=== PATIENT | male | born 1945 | race Caucasian/White ===

== ENCOUNTER 2017-07-08 14:52 | Emergency (ER) | payer MEDICARE, MEDICAID ==
[2017-07-08 14:52] VITALS: BMI 29.7
--- NOTE | 2017-07-08 15:20 | C.PDOC ---
History Of Present Illness 71M c/o pain in his left hip rad down to his lower leg since he tripped and fell outside his home yesterday around 430pm. his daughter says he initially didn't tell anyone but last night he developed worsening pain and so he told her what had happened. denies any head injury. he took ibuprofen with some relief. he has been able to ambulate. Time Seen by Provider: 07/08/17 15:19 Chief Complaint (Nursing): Hip Pain Past Medical History Vital Signs: Last Vital Signs Temp 99.1 F 07/08/17 15:00 Pulse 84 07/08/17 15:00 Resp 20 07/08/17 15:00 BP 109/64 07/08/17 15:00 Pulse Ox 95 07/08/17 17:40 - Medical History PMH: Arthritis, Diabetes, HTN Family History: States: Other Other Family History: nc - Social History Hx Tobacco Use: No Hx Alcohol Use: No Hx Substance Use: No - Immunization History Hx Tetanus Toxoid Vaccination: No Hx Influenza Vaccination: No Hx Pneumococcal Vaccination: No Review Of Systems Constitutional: Negative for: Fever Cardiovascular: Negative for: Chest Pain Respiratory: Negative for: Shortness of Breath Gastrointestinal: Negative for: Vomiting, Abdominal Pain Musculoskeletal: Negative for: Neck Pain, Back Pain Neurological: Negative for: Headache Physical Exam - Physical Exam Appears: Well, Non-toxic Skin: Warm, Dry Head: Atraumatic Eye(s): bilateral: PERRL Nose: No Epistaxis Neck: Normal ROM Chest: No Tenderness Cardiovascular: Rhythm Regular Respiratory: No Decreased Breath Sounds, No Accessory Muscle Use Gastrointestinal/Abdominal: Soft, No Tenderness Extremity: Normal ROM, Tenderness (lateral left hip and femur and also mid tib/ fib. rom hip/knee/ankle wnl.), No Deformity Pulses: Left Dorsalis Pedis: Normal Neurological/Psych: Oriented x3, Normal Motor, Normal Sensation, Other (no focal deficits) ED Course And Treatment O2 Sat by Pulse Oximetry: 95 Medical Decision Making Medical Decision Makin disc results w pt and daughter. I had the pt get up and ambulate and he was able to ambulate without difficulty. Disc plan for rx, f/u, and rtr. PROCEDURE: Radiographs of the left tibia and fibula. HISTORY: fall pain COMPARISON: None available. TECHNIQUE: Frontal and lateral views obtained. FINDINGS: BONES: No fracture or destructive lesion. JOINT SPACES: Moderate degenerative changes. OTHER FINDINGS: None. IMPRESSION: No evidence of acute fracture or dislocation. PROCEDURE: Left Femur Radiographs. HISTORY: fall pain COMPARISON: None. TECHNIQUE: AP and Lateral Radiographs of the left femur. FINDINGS: FEMUR: Normal. No fracture. SOFT TISSUES: Normal. OTHER FINDINGS: Degenerative changes seen at the left hip and left knee. IMPRESSION: No evidence of acute fracture or dislocation PROCEDURE: Left Hip with pelvis X-ray Radiographs. HISTORY: fall pain COMPARISON: None. FINDINGS: BONES: No acute fracture or destructive bony lesion identified. JOINTS: Degenerative changes are symmetric in the bilateral sacroiliac and hip joints. No subluxation or dislocation left hip joint. Symphysis pubis is intact. SOFT TISSUES: Normal. OTHER FINDINGS: None. IMPRESSION: Degenerative changes are symmetric at the bilateral sacroiliac and hip joints. No fracture dislocation left hip joint. Pelvic ring appears intact. Disposition - Disposition Disposition: HOME/ ROUTINE Disposition Time: 17:40 Condition: STABLE Forms: [facility] (Italian) - Clinical Impression Clinical Impression: Contusion of hip, Contusion of leg
--- NOTE | 2017-07-08 17:25 | RAD ---
PROCEDURE: Left Hip with pelvis X-ray Radiographs. HISTORY: fall pain COMPARISON: None. FINDINGS: BONES: No acute fracture or destructive bony lesion identified. JOINTS: Degenerative changes are symmetric in the bilateral sacroiliac and hip joints. No subluxation or dislocation left hip joint. Symphysis pubis is intact. SOFT TISSUES: Normal. OTHER FINDINGS: None. IMPRESSION: Degenerative changes are symmetric at the bilateral sacroiliac and hip joints. No fracture dislocation left hip joint. Pelvic ring appears intact.
--- NOTE | 2017-07-08 17:26 | RAD ---
PROCEDURE: Left Femur Radiographs. HISTORY: fall pain COMPARISON: None. TECHNIQUE: AP and Lateral Radiographs of the left femur. FINDINGS: FEMUR: Normal. No fracture. SOFT TISSUES: Normal. OTHER FINDINGS: Degenerative changes seen at the left hip and left knee. IMPRESSION: No evidence of acute fracture or dislocation.
--- NOTE | 2017-07-08 17:37 | RAD ---
PROCEDURE: Radiographs of the left tibia and fibula. HISTORY: fall pain COMPARISON: None available. TECHNIQUE: Frontal and lateral views obtained. FINDINGS: BONES: No fracture or destructive lesion. JOINT SPACES: Moderate degenerative changes. OTHER FINDINGS: None. IMPRESSION: No evidence of acute fracture or dislocation.
[2017-07-08 18:04] VITALS: BP 112/62; PULSE 78; RESP 18; TEMP 99; O2SAT 98
== END 2017-07-08 18:05 | disposition home or self-care (01) ==
LOC: C.ER 14:52
DX: S70.02XA Contusion of left hip, initial encounter (principal); S80.12XA Contusion of left lower leg, initial encounter; W01.0XXA Fall on same level from slipping, tripping and stumbling without subsequent striking against object, initial encounter

== ENCOUNTER 2018-09-11 15:58 | Inpatient (IN) | payer MEDICARE, MEDICAID ==
[2018-09-11 16:20] VITALS: BMI 28.4
[2018-09-11 17:03] LABS: EOS # 0.1 K/uL (0.0-0.7); HEMOGLOBIN 14.7 g/dL (12.0-18.0); MEAN CORPUSCULAR HEMOGLOBIN 31.4 pg (27.0-31.0)
--- NOTE | 2018-09-11 17:08 | RAD ---
Date of service: 09/11/2018 PROCEDURE: CHEST RADIOGRAPH, 1 VIEW HISTORY: SOB COMPARISON: Chest radiograph dated 08/27/2014. FINDINGS: LUNGS: Stable chronic prominence of the bilateral interstitial markings with superimposed pulmonary vascular congestion not excluded. Peripheral fibrotic changes. PLEURA: Questionable small left effusion. No pneumothorax. CARDIOVASCULAR: Aortic atherosclerotic calcifications. Cardiomediastinal silhouette stably enlarged. OSSEOUS STRUCTURES: Changed. VISUALIZED UPPER ABDOMEN: Normal. OTHER FINDINGS: None. IMPRESSION: Stable chronic prominence of the bilateral interstitial markings with superimposed pulmonary vascular congestion not excluded. Questionable small left effusion.
--- NOTE | 2018-09-11 17:09 | C.PDOC ---
History Of Present Illness 73 y/o male presents to the ER complaining of cough and shortness of breath which has been present for the past 1 month. Patient states that he returned from [place] in July 2018. Patient reports that he was evaluated by his PMD Dr Gallegos and he was given prescriptions for abx and cough suppressants. He took the medications without significant relief. He went to who referred him to the ER for cardiac work up and admission. Denies having fever, chills, headache, CP, nausea, and vomiting. Time Seen by Provider: 09/11/18 16:16 Chief Complaint (Nursing): Cough, Cold, Congestion History Per: Patient History/Exam Limitations: no limitations Onset/Duration Of Symptoms: Days Current Symptoms Are (Timing): Still Present Severity: Moderate Past Medical History Reviewed: Historical Data, Nursing Documentation, Vital Signs Vital Signs: Last Vital Signs Temp 98.2 F 09/11/18 16:06 Pulse 100 H 09/11/18 16:06 Resp 24 09/11/18 16:06 BP 111/70 09/11/18 16:06 Pulse Ox 94 L 09/11/18 16:06 - Medical History PMH: Arthritis, Diabetes Denies: HTN (family denies) Surgical History: No Surg Hx Family History: States: No Known Family Hx - Social History Hx Tobacco Use: No Hx Alcohol Use: No Hx Substance Use: No - Immunization History Hx Tetanus Toxoid Vaccination: No Hx Influenza Vaccination: No Hx Pneumococcal Vaccination: No Review Of Systems Except As Marked, All Systems Reviewed And Found Negative. Constitutional: Negative for: Fever, Chills Cardiovascular: Negative for: Chest Pain Respiratory: Positive for: Cough, Shortness of Breath Gastrointestinal: Negative for: Nausea, Vomiting Neurological: Negative for: Headache Physical Exam - Physical Exam Appears: Other (ruckus coughing) Skin: Normal Color, Warm, Dry Head: Atraumatic, Normacephalic Eye(s): bilateral: Normal Inspection Nose: Normal Oral Mucosa: Moist Throat: Normal, No Erythema, No Exudate Neck: Supple Chest: Symmetrical Cardiovascular: Rhythm Regular Respiratory: No Rales, Rhonchi (scattered rhonchi), Wheezing (scattered wh eezing) Gastrointestinal/Abdominal: Soft, No Tenderness, No Guarding, No Rebound Extremity: Normal ROM, Other (mild non pitting edema to bilateral lower extremities) Neurological/Psych: Oriented x3, Normal Speech ED Course And Treatment - Laboratory Results Result Diagrams: 09/11/18 16:58 09/11/18 16:58 ECG: Interpreted By Me, Viewed By Me ECG Rhythm: Sinus Rhythm Interpretation Of ECG: NSR with no ST elevations or depressions Rate From EC O2 Sat by Pulse Oximetry: 94 (RA) Pulse Ox Interpretation: Abnormal Medical Decision Making Medical Decision Making: Plan: --Labs --CXR --UA --CT- Chest Updates: Case discussed with . Patient will be admitted for further evaluation. Disposition - Disposition Disposition: HOSPITALIZED Disposition Time: 17:37 Condition: GUARDED - Clinical Impression Clinical Impression: SOB (shortness of breath), Hypoxia - Scribe Statement The provider has reviewed the documentation as recorded by the Scribe Magda Garcia Provider Attestation: All medical record entries made by the Scribe were at my direction and personally dictated by me. I have reviewed the chart and agree that the record accurately reflects my personal performance of the history, physical exam, me dical decision making, and the department course for this patient. I have also personally directed, reviewed, and agree with the discharge instructions and disposition. Decision To Admit - Pt Status Changed To: Hospital Disposition Of: Inpatient - Admit Certification Admit to Inpatient:: After my assessment, the patient will require hospitalization for at least two midnights. This is because of the severity of symptoms shown, intensity of services needed, and/or the medical risk in this patient being treated as an outpatient. - InPatient: Physician Admission Certification: I certify that this patient requires 2 or more midnights of care for the following reason:: sob, hypoxia - . Bed Request Type: Telemetry Patient Diagnosis: SOB (shortness of breath), Hypoxia
[2018-09-11 17:10] LABS: BASO % 0.4 % (0.0-2.0); EOS % 3.3 % (0.0-4.0); LYMPH # 1.3 K/uL (1.0-4.3); LYMPH % 36.7 % (20.0-40.0); MEAN CORPUSCULAR HGB CONC 32.9 g/dL (33.0-37.0); MEAN PLATELET VOLUME 8.7 fL (7.2-11.7); MONO # 0.3 K/uL (0.0-0.8); MONO % 9.9 % (0.0-10.0); NEUT # 1.7 K/uL (1.8-7.0); NEUT % 49.7 % (50.0-75.0); NRBC % 0.3 % (0.0-2.0); RBC 4.67 Mil/uL (4.40-5.90); RED CELL DISTRIBUTION WIDTH 14.6 % (11.5-14.5); WHITE BLOOD COUNT 3.5 K/uL (4.8-10.8)
[2018-09-11 17:12] LABS: MEAN CELL VOLUME 95.4 fL (80.0-94.0)
[2018-09-11 17:14] LABS: ALB/GLOB RATIO 0.7 (1.0-2.1); ALBUMIN 3.2 g/dL (3.5-5.0); ALT/SGPT 29 U/L (21-72); AST/SGOT 66 U/L (17-59); BLOOD UREA NITROGEN 14 mg/dL (9-20); GFR NON-AFRICAN AMERICAN > 60
[2018-09-11 17:25] LABS: B-TYPE NATRIURETIC PEPTIDE 407 pg/mL (0-900)
[2018-09-11] MEDS ORDERED: Ipratropium 0.02% Inhal Soln (0.5 mg/2.5 ml) UD IH STA (17:35)
[2018-09-11] MEDS ORDERED: Ipratropium 0.02% Inhal Soln (0.5 mg/2.5 ml) UD IH ONE (17:44)
--- NOTE | 2018-09-11 18:32 | CT ---
Date of service: 09/11/2018 PROCEDURE: CT Chest without contrast HISTORY: lung desease, SOB COMPARISON: Comparison is made with the previous study dated 08/27/2014 TECHNIQUE: Contiguous axial images were obtained through the chest without intravenous contrast enhancement. Sagittal and coronal reconstructions were performed. Radiation dose: Total exam DLP = 453.35 mGy-cm. This CT exam was performed using one or more of the following dose reduction techniques: Automated exposure control, adjustment of the mA and/or kV according to patient size, and/or use of iterative reconstruction technique. FINDINGS: LUNGS: Interval worsening of reticular opacities at peripheral portion of the upper lobes since the previous exam. Significant interval worsening of reticular opacities at the lung bases left more than right with interval appearance of honeycomb changes. MEDIASTINUM: The thoracic aorta is ectatic and tortuous. The heart is mildly to moderately enlarged. The main pulmonary artery is slightly enlarged. There are [id number] lymphadenopathy in the mediastinum. Small foci of atherosclerotic calcification noted at the aortic arch. PLEURA: There is a trace left pleural effusion. BONES: No fracture. No destructive lesion. UPPER ABDOMEN: Cirrhotic manifestation of the liver are noted. There are multiple varices in the upper abdomen and around the distal esophagus. The spleen is enlarged. OTHER FINDINGS: None. IMPRESSION: Interval worsening of reticular opacities since the prior exam with interval appearance of honeycomb changes at the lung bases. 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 Trace left pleural effusion noted. Cardiomegaly. Mild mediastinal lymphadenopathy. Cirrhosis with findings suggestive of portal hypertension.
[2018-09-11 20:29] VITALS: RESP 20
[2018-09-11 20:58] LABS: ABG ALLEN TEST YES; ARTERIAL BLOOD GAS HEMOGLOBIN 13.2 g/dL (11.7-17.4); ARTERIAL BLOOD GAS O2 SAT 97.5 % (95-98); ARTERIAL BLOOD GAS PCO2 33 mm/Hg (35-45); ARTERIAL BLOOD GAS PH 7.44 (7.35-7.45); ARTERIAL BLOOD GAS PO2 71 mm/Hg (80-100); ARTERIAL BLOOD GAS TCO2 23.4 mmol/L (22-28)
[2018-09-11] MEDS: Latanoprost 2.5 ml Opht Soln OU SCH (22:04)
[2018-09-12] MEDS: Albuterol-Ipratrop 3 mg / 0.5 (3 ml) UD INH SCH ×6 (00:22→20:52)
[2018-09-12 08:22] LABS: HEPATITIS B SURFACE AG Negative (NEGATIVE)
[2018-09-12 08:28] LABS: HEPATITIS A IGM NEGATIVE (NEGATIVE); HEPATITIS B CORE AB NEGATIVE (NEGATIVE)
[2018-09-12 08:39] LABS: HEPATITIS C ANTIBODY NEGATIVE (NEGATIVE)
[2018-09-12] MEDS: Promethazine/Cod 6.25mg-10mg/5ml Syr UD PO PRN (08:56)
[2018-09-12] MEDS: MethylPREDNISolone 40 mg Vial IV SCH ×4 (09:26→23:11)
[2018-09-12] MEDS: Enoxaparin 40 mg Syringe SC SCH (09:26)
[2018-09-12] MEDS ORDERED: guaiFENesin 600 mg ER Tab PO SCH (10:00)
--- NOTE | 2018-09-12 10:07 | US ---
Date of service: 09/12/2018 HISTORY: cirrhosis COMPARISON: 12/06/2015 abdominal ultrasound TECHNIQUE: Sonographic evaluation of the abdomen. FINDINGS: LIVER: Measures 9.8 cm. Heterogeneous echogenicity of the liver parenchyma. No focal mass appreciate. No intrahepatic bile duct dilatation. Known history of cirrhosis. GALLBLADDER: Unremarkable. No gallstones. COMMON BILE DUCT: Measures 3.1 mm. No stones. No dilatation. PANCREAS: Limited by overlying bowel gas RIGHT KIDNEY: Measures 10.1 x 4.8 x 5.2cm. Normal echogenicity. No calculus, mass, or hydronephrosis. Overall right renal visualization per images is somewhat limited. LEFT KIDNEY: Measures measures 11.5 x 5.2 x 5.2cm. Normal echogenicity. No calculus, mass, or hydronephrosis. Left renal ultrasound depiction better than the right SPLEEN: 13.6 x 6.4 cm. No splenic masses or calcifications noted. The spleen certainly appears disproportionately larger compared to the liver its size is nearing splenomegaly a status AORTA: No aneurysmal dilatation. IVC: Unremarkable. OTHER FINDINGS: Patent portal vein. Portal venous flow: Hepatopetal. IMPRESSION: Somewhat limited exam due to patient's inability to optimally breath hold. Nevertheless findings compatible with a small heterogeneous liver compatible with cirrhosis. No focal masses are noted. Patent portal vein. Portal venous flow: Hepatopetal. Relative to the liver mild splenomegaly inferred
[2018-09-12] MEDS: Azithromycin 500 MG in Sodium Chloride 0.9% 250 ML IVPB SCH (10:30)
--- NOTE | 2018-09-12 11:41 | CARD ---
APPROVED REPORT Date of service: 09/11/2018 EKG Measurement Heart [id number] <Conclusion> Normal sinus rhythm Low voltage QRS Borderline ECG
--- NOTE | 2018-09-12 13:14 | CP.PCM.CON ---
<Peter Jackson - Last Filed: 09/12/18 18:40> History of Present Illness - History of Present Illness History of Present Illness: 73 year old man with a past medical history of insomnia, arthritis, and diabetes presents to the hospital fora cough and chest pain he reports for the past on e month. Patient states the pain starts mid-sternally with radiation to the left side of his chest. Patient reports it occurring while at rest and during activity. In conjunction, patient also reports dyspnea or exertion for the past month also. Patient denies any dizziness, syncopal episodes, changes in vision, headaches, abdominal pain, or any other complaints PMD: Dr. Bateman Medical History: Insomnia, diabetes, arthritis, hepatic cirrhosis Allergies: Denies Surgical history:Denies Family history: Denies Social history:Denies tobacco or smoking history. Denies illicit drug use. Review of Systems - Constitutional Constitutional: absent: Chills, Daytime Sleepiness, Frequent Falls, Headache, Night Sweats, Snoring, Weakness - EENT Eyes: absent: Blurred Vision, Discharge, Loss of Peripheral Vision, Requires Corrective Lenses, Other Visual Disturbances Ears: absent: Disequilibrium, Dizziness Nose/Mouth/Throat: absent: Nasal Congestion, Nasal Trauma, Nose Pain, Bleeding Gums, Dysphagia, Mouth Pain, Facial Pain - Cardiovascular Cardiovascular: Chest Pain, Dyspnea, Dyspnea on Exertion. absent: Claudication, Edema, Irregular Heart Rhythm, Leg Edema, Orthopnea, Palpitations, Pedal Edema, Syncope - Respiratory Respiratory: Cough. absent: Dyspnea, Hemoptysis, Stridor, Pain on Inspiration, Change in Mucous Color - Gastrointestinal Gastrointestinal: absent: Abdominal Pain, Change in Stool Character, Diarrhea, Fecal Incontinence, Loose Stools, Melena, Nausea, Vomiting - Musculoskeletal Musculoskeletal: absent: Arthralgias, Muscle Weakness, Myalgias, Stiffness, Tingling - Integumentary Integumentary: absent: Bleeding Lesions, Change in Pigmentation, Lesions, Sores, Striae, Swelling - Neurological Neurological: absent: Abnormal Hearing, Dizziness, Numbness, Focal Weakness, Restless Legs, Vertigo, Weakness - Psychiatric Psychiatric: absent: Anhedonia, Anxiety, Depression, Hopelessness, Panic Attacks - Endocrine Endocrine: absent: Polydipsia, Polyphagia, Polyuria - Hematologic/Lymphatic Hematologic: absent: Easy Bleeding, Easy Bruising Past Patient History - Past Medical History & Family History Past Medical History?: No - Past Social History Smoking Status: Never Smoked - CARDIAC Hx Cardiac Disorders: No Hx Angina: No Hx Atrial Fibrillation: No Hx Cardia Arrhythmia: No Hx Circulatory Problems: No Hx Congestive Heart Failure: No Hx Heart Attack: No Hx Heart Murmur: No Hx Heart Transplant: No Hx Hypercholesterolemia: No Hx Hypertension: No (family denies) Hx Hypotension: No Hx Internal Defibrillator: No Hx Mitral Valve Prolapse: No Hx Pacemaker: No Hx Peripheral Edema: No Hx Peripheral Vascular Disease: No - PULMONARY Hx Respiratory Disorders: No Hx Asthma: No Hx Bronchitis: No Hx Chronic Obstructive Pulmonary Disease (COPD): No Hx Emphysema: No Hx Lung Cancer: No Hx Pneumonia: No Hx Pulmonary Edema: No Hx Pulmonary Embolism: No Hx Respiratory Aspiration: No Hx Respiratory Tract Infection: No Hx Sleep Apnea: No Hx Tuberculosis: No - NEUROLOGICAL Hx Neurological Disorder: No Hx Alzheimer's Disease: No HX Cerebrovascular Accident: No Hx Dementia: No Hx Dizziness: No Hx Meningitis: No Hx Migraine: No Hx Multiple Sclerosis: No Hx Paralysis: No Hx Parkinson's Disease: No Hx Seizures: No Hx Syncope: No Hx Transient Ischemic Attacks (TIA): No Hx Vertigo: No - HEENT Hx HEENT Problems: No Hx Blind: No Hx Cataracts: No Hx Deafness: No Hx Difficulty Chewing: No Hx Epistaxis: No Hx Glaucoma: No Hx Macular Degeneration: No Hx Sinusitis: No - RENAL Hx Chronic Kidney Disease: No Hx Dialysis: No Hx Kidney Stones: No Hx Neurogenic Bladder: No Hx Pyelonephritis: No Hx Renal (Kidney) Cancer: No Hx Renal Failure: No - ENDOCRINE/METABOLIC Hx Endocrine Disorders: No Hx Adrenal Cancer: No Hx Diabetes Insipidus: No Hx Diabetes Mellitus Type 1: No Hx Diabetes Mellitus Type 2: No Hx Hyperthyroidism: No Hx Hypothyroidism: No Hx Systemic Lupus Erythematosus: No Other/Comment: DM. DOES NOT KNOW WHICH TYPE OR ORAL MEDICATIONS - HEMATOLOGICAL/ONCOLOGICAL Hx Blood Disorders: No Hx AIDS: No Hx Anemia: No Hx Blood Transfusions: No Hx Blood Transfusion Reaction: No Hx Bruising: No Hx Cancer: No Hx Chemotherapy: No Hx Cirrhosis: No Hx Gum Bleeding: No Hx Hemophilia: No Hx Hepatitis A: No Hx Hepatitis B: No Hx Hepatitis C: No Hx Human Immunodeficiency Virus (HIV): No Hx Leukemia: No Hx Metastesis: No Hx Shingles: No Hx Sickle Cell Disease: No Hx Unexplained Bleeding: No Hx von Willebrand's Disease: No - INTEGUMENTARY Hx Dermatological Problems: No Hx Basil Cell: No Hx Payne: No Hx Cellulitis: No Hx Eczema: No Hx Melanoma: No Hx Psoriasis: No Hx Squamous Cell: No - MUSCULOSKELETAL/RHEUMATOLOGICAL Hx Musculoskeletal Disorders: No Hx Arthritis: Yes Hx Back Pain: No Hx Degenerative Joint Disease: No Hx Falls: No Hx Fractures: No Hx Gout: No Hx Herniated Disk: No Hx Myasthenia Gravis: No Hx Osteoarthritis: No Hx Osteomyelitis: No Hx Osteoporosis: No Hx Rhabdomyolysis: No Hx Rheumatoid Arthritis: No Hx Spinal Stenosis: No Hx Unsteady Gait: No - GASTROINTESTINAL Hx Gastrointestinal Disorders: No Hx Bowel Surgery: No Hx Clostridium Difficile: No Hx Colitis: No Hx Colostomy: No Hx Constipation: No Hx Crohn's Disease: No Hx Diarrhea: No Hx Diverticulitis: No Hx Esophageal Varices: No Hx Fatty Liver Disease: No Hx Gall Bladder Disease: No Hx Gastritis: No Hx Gastroesophageal Reflux: No Hx Hemorrhoids: No Hx Ileostomy: No Hx Irritable Bowel: No Hx Liver Failure: No Hx Nausea: No Hx Pancreatitis: No HX Swallowing Problems: No Hx Ulcer: No Hx Vomiting: No - GENITOURINARY/GYNECOLOGICAL Hx Genitourinary Disorders: No Hx Bladder Cancer: No Hx Bladder Stone: No Hx Hematuria: No Hx Incontinence: No Hx Prostate Cancer: No Hx Prostate Problems: No Hx Reproductive Disorders: No Hx Sexually Transmitted Disorders: No Hx Urinary Tract Infection: No - PSYCHIATRIC Hx Psychophysiologic Disorder: No Hx Anxiety: No Hx Bipolar Disorder: No Hx Depression: No Hx Emotional Abuse: No Hx Hallucinations: No Hx Panic Symptoms: No Hx Paranoia: No Hx Post Traumatic Stress Disorder: No Hx Psychosis: No Hx Physical Abuse: No Hx Schizophrenia: No Hx Sexual Abuse: No Hx Substance Use: No - SURGICAL HISTORY Hx Surgeries: No - ANESTHESIA Hx Anesthesia: No Meds Allergies/Adverse Reactions: Allergies Allergy/AdvReac Type Severity Reaction Status Date / Time No Known Allergies Allergy Verified 09/11/18 16:06 - Medications Medications: Current Medications Albuterol/Ipratropium (Duoneb 3 Mg/0.5 Mg (3 Ml) Ud) 3 ml INH RQ4 [facility] Last Admin: 09/12/18 11:20 Dose: 3 ml Enoxaparin Sodium (Lovenox) 40 mg SC DAILY [facility] Last Admin: 09/12/18 09:26 Dose: 40 mg Famotidine (Pepcid) 20 mg IVP Q12 [facility] Last Admin: 09/12/18 09:26 Dose: 20 mg Guaifenesin (Mucinex La) 600 mg PO BID [facility] Azithromycin 500 mg/ Sodium (Chloride) 250 mls @ 250 mls/hr IVPB DAILY [facility]; Protocol Ceftriaxone Sodium 1 gm/ (Sodium Chloride) 100 mls @ 100 mls/hr IVPB DAILY [facility]; Protocol Last Admin: 09/12/18 09:26 Dose: 100 mls/hr Latanoprost (Xalatan Opht) 0 ml OU HS [facility]UL[facility] Last Admin: 09/11/18 22:04 Dose: 2.5 ml Methylprednisolone (Solu-Medrol) 60 mg IV Q6 [facility] Last Admin: 09/12/18 09:26 Dose: 60 mg Promethazine HCl/Codeine (Phenergan/Codeine Oral Syrup) 5 ml PO Q6 PRN PRN Reason: Cough Last Admin: 09/12/18 08:56 Dose: 5 ml Physical Exam - Head Exam Head Exam: ATRAUMATIC, NORMAL INSPECTION, NORMOCEPHALIC - Eye Exam Eye Exam: EOMI, Normal appearance, PERRL. absent: Periorbital tenderness Pupil Exam: NORMAL ACCOMODATION - ENT Exam ENT Exam: Mucous Membranes Moist, Normal Exam. absent: Normal Oropharynx - Neck Exam Neck exam: Negative for: Lymphadenopathy, Meningismus, Thyromegaly - Respiratory Exam Respiratory Exam: Clear to Auscultation Bilateral, NORMAL BREATHING PATTERN. absent: Prolonged Expiratory Phase, Respiratory Distress - Cardiovascular Exam Cardiovascular Exam: Tachycardia, +S1, +S2 - GI/Abdominal Exam GI & Abdominal Exam: Normal Bowel Sounds, Soft. absent: Organomegaly, Tenderness - Back Exam Back exam: NORMAL INSPECTION. absent: CVA tenderness (R), paraspinal tenderness, vertebral tenderness - Neurological Exam Neurological exam: Alert, CN II-XII Intact, Normal Gait, Oriented x3 - Psychiatric Exam Psychiatric exam: Normal Affect, Normal Mood - Skin Skin Exam: Dry, Intact, Normal Color, Warm Results - Vital Signs Recent Vital Signs: Last Vital Signs Temp 98 F 09/12/18 08:00 Pulse 106 H 09/12/18 12:00 Resp 20 09/12/18 08:00 BP 106/69 09/12/18 08:00 Pulse Ox 96 09/12/18 08:00 - Labs Result Diagrams: 09/11/18 16:58 09/11/18 16:58 Labs: Laboratory Results - last 24 hr 09/11/18 09/11/18 09/11/18 16:58 16:58 17:00 WBC 3.5 L RBC 4.67 Hgb 14.7 Hct 44.6 MCV 95.4 H D MCH 31.4 H MCHC 32.9 L RDW 14.6 H Plt Count 62 L MPV 8.7 Neut % (Auto) 49.7 L Lymph % (Auto) 36.7 [place] % (Auto) 9.9 Eos % (Auto) 3.3 Baso % (Auto) 0.4 Neut # (Auto) 1.7 L Lymph # (Auto) 1.3 [place] # (Auto) 0.3 Eos # (Auto) 0.1 Baso # (Auto) 0.0 Differential Comment Puncture Site pCO2 pO2 HCO3 ABG pH ABG Total CO2 ABG O2 Saturation ABG Base Excess ABG Hemoglobin ABG Carboxyhemoglobin POC ABG HHb (Measured) ABG Methemoglobin Hemanth Test A-a O2 Difference Respiratory Index Hgb O2 Saturation FiO2 Sodium 139 Potassium 4.0 Chloride 110 H Carbon Dioxide 22 Anion Gap 11 BUN 14 Creatinine 1.0 Est GFR ( Amer) > 60 Est GFR (Non-Af Amer) > 60 Random Glucose 136 H D Calcium 8.0 L Total Bilirubin 0.8 AST 66 H ALT 29 Alkaline Phosphatase 132 H Troponin I < 0.0120 NT-Pro-B Natriuret Pep 407 Total Protein 7.7 Albumin 3.2 L Globulin 4.5 H Albumin/Globulin Ratio 0.7 L Hepatitis A IgM Ab Hep Bs Antigen Hep Bs Antibody Hep B Core IgM Ab Hepatitis C Antibody HIV 1&2 Antibody Screen Influenza Typ A,B (EIA) Negative for flu a/b 09/11/18 09/11/18 09/12/18 17:51 20:45 07:22 WBC RBC Hgb Hct MCV MCH MCHC RDW Plt Count MPV Neut % (Auto) Lymph % (Auto) [place] % (Auto) Eos % (Auto) Baso % (Auto) Neut # (Auto) Lymph # (Auto) [place] # (Auto) Eos # (Auto) Baso # (Auto) Differential Comment Puncture Site Rb pCO2 33 L pO2 71 L HCO3 24.0 ABG pH 7.44 ABG Total CO2 23.4 ABG O2 Saturation 97.5 ABG Base Excess -1.1 ABG Hemoglobin 13.2 ABG Carboxyhemoglobin 2.0 H POC ABG HHb (Measured) 2.4 ABG Methemoglobin 1.3 Hemanth Test Yes A-a O2 Difference 37.0 Respiratory Index 0.5 Hgb O2 Saturation 94.3 L FiO2 21.0 Sodium Potassium Chloride Carbon Dioxide Anion Gap BUN Creatinine Est GFR ( Amer) Est GFR (Non-Af Amer) Random Glucose Calcium Total Bilirubin AST ALT Alkaline Phosphatase Troponin I NT-Pro-B Natriuret Pep Total Protein Albumin Globulin Albumin/Globulin Ratio Hepatitis A IgM Ab Negative Hep Bs Antigen Negative Hep Bs Antibody Hep B Core IgM Ab Negative Hepatitis C Antibody Negative HIV 1&2 Antibody Screen Negative Influenza Typ A,B (EIA) 09/12/18 07:22 WBC RBC Hgb Hct MCV MCH MCHC RDW Plt Count MPV Neut % (Auto) Lymph % (Auto) [place] % (Auto) Eos % (Auto) Baso % (Auto) Neut # (Auto) Lymph # (Auto) [place] # (Auto) Eos # (Auto) Baso # (Auto) Differential Comment Puncture Site pCO2 pO2 HCO3 ABG pH ABG Total CO2 ABG O2 Saturation ABG Base Excess ABG Hemoglobin ABG Carboxyhemoglobin POC ABG HHb (Measured) ABG Methemoglobin Heamnth Test A-a O2 Difference Respiratory Index Hgb O2 Saturation FiO2 Sodium Potassium Chloride Carbon Dioxide Anion Gap BUN Creatinine Est GFR ( Amer) Est GFR (Non-Af Amer) Random Glucose Calcium Total Bilirubin AST ALT Alkaline Phosphatase Troponin I NT-Pro-B Natriuret Pep Total Protein Albumin Globulin Albumin/Globulin Ratio Hepatitis A IgM Ab Hep Bs Antigen Hep Bs Antibody Negative Hep B Core IgM Ab Hepatitis C Antibody HIV 1&2 Antibody Screen Influenza Typ A,B (EIA) Assessment & Plan - Assessment and Plan (Free Text) Assessment: 73 year old man with a past medical history of insomnia, arthritis, and diabetes presents to the hospital fora cough and chest pain he reports for the past one month. Plan: 1. Chest pain -EKG upon admission: NSR @[address] segment elevations/depressions -Troponin (-) x 2. Will trend -bnp 407 upon admission. -Echo taken. Final read pending. Will f/u with results. 2.Cough Promethazine 5ml PO Q6PRN Mucinex 600mg PO BID ppx -Lovenox -Pepcid Plan discussed with Dr. Austin. Peter Jackson, PGY-2 <Abraham Austin - Last Filed: 09/12/18 22:57> Meds - Medications Medications: Current Medications Albuterol/Ipratropium (Duoneb 3 Mg/0.5 Mg (3 Ml) Ud) 3 ml INH RQ4 [facility] Last Admin: 09/12/18 20:52 Dose: 3 ml Enoxaparin Sodium (Lovenox) 40 mg SC DAILY [facility] Last Admin: 09/12/18 09:26 Dose: 40 mg Famotidine (Pepcid) 20 mg IVP Q12 [facility] Last Admin: 09/12/18 21:23 Dose: 20 mg Azithromycin 500 mg/ Sodium (Chloride) 250 mls @ 250 mls/hr IVPB DAILY [facility]; Protocol Last Admin: 09/12/18 10:30 Dose: 250 mls/hr Ceftriaxone Sodium 1 gm/ (Sodium Chloride) 100 mls @ 100 mls/hr IVPB DAILY [facility]; Protocol Last Admin: 09/12/18 09:26 Dose: 100 mls/hr Latanoprost (Xalatan Opht) 0 ml OU HS [facility] Last Admin: 09/12/18 21:21 Dose: 2.5 ml Methylprednisolone (Solu-Medrol) 60 mg IV Q6 [facility] Last Admin: 09/12/18 17:30 Dose: 60 mg Promethazine HCl/Codeine (Phenergan/Codeine Oral Syrup) 5 ml PO Q6 PRN PRN Reason: Cough Last Admin: 09/12/18 08:56 Dose: 5 ml Results - Vital Signs Recent Vital Signs: Last Vital Signs Temp 98.2 F 09/12/18 15:39 Pulse 90 09/12/18 15:39 Resp 20 09/12/18 15:39 BP 98/57 L 09/12/18 15:39 Pulse Ox 96 09/12/18 15:39 - Labs Result Diagrams: 09/11/18 16:58 09/11/18 16:58 Labs: Laboratory Results - last 24 hr 09/12/18 09/12/18 07:22 07:22 Hepatitis A IgM Ab Negative Hep Bs Antigen Negative Hep Bs Antibody Negative Hep B Core IgM Ab Negative Hepatitis C Antibody Negative Assessment & Plan - Assessment and Plan (Free Text) Plan: Patient seen and evaluated personally by me. Plan of care d/w the medical staff credentialing coordinator and as documented
[2018-09-12] MEDS ORDERED: Pneumococcal 23-Valent Vaccine IM ONE (13:24)
[2018-09-12] MEDS ORDERED: Influenza Vaccine 60 mcg/0.5 mL SYR (4YR UP) IM ONE (13:24)
--- NOTE | 2018-09-12 16:48 | CP.PCM.CON ---
History of Present Illness - History of Present Illness History of Present Illness: Mr. Mortensen is 73yo M with PMHx significant for DM and "arthritis", was initially seen in my office yesterday with complaints of dry cough and SOB since returning back from a month-long trip to [facility] in July. Patient was provided with a course of Levaquin and tessalon perles to treat a presumed respiratory tract infection. Despite completing a course of antibiotics, his cough and dypnea continued to progress in severity with an addition of new onset leg swelling. He was instructed to come in to the ED for further evaluation. Work-up included CT imaging of the chest which revealed extensive reticular opacities in both lungs, consistent with pulmonary fibrosis. At this time, patient states that he still feels very short of breath with the persistent cough, minimal relief with current treatment. He denies any chest pain, nausea, vomiting or hemoptysis. 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 Family Hx: Denies any family history of "liver problems", "joint problems", "lung problems" or "immune problems" Allergies: NKDA Home Medications: Latanoprost 0.005% ophthalmic solution, Ibuprofen prn; Recently completed a course of Levaquin and tessalon perles Exam: Gen: No acute distress. AAOx3 HEENT: Moist mucosa. Card: RRRR. Lungs: (+) Slightly labored and shallow breathing but symmetric chest excursions, with frequent coughing noted. (+) Diffuse rhonchi noted in all lung gardner/ Abd: Soft, non-distended. Normal bowel sounds. No tenderness to palpation. Ext: (+) 1+ pitting edema to the anterior shins bilaterally; (+) Heberden's and Cesar's nodes noted to the bilateral hands. No cyanosis or clubbing of the digits noted. A&P Summary: Mr. Mortensen is a 73 yo M with h/o DM and "arthritis", who was recently completed a course of ABX for presumed respiratory tract infection after returning back from a trip to [place] in July. Despite completing this course, his symptoms continued to progress and was referred here to the hospital for further evaluation. CT imaging revealed extensive reticular opacities in both lungs, consistent with pulmonary fibrosis. During discussion, patient denies smoking, occupation hazards, and family history of lung/immune disorders. He does admit to chronic joint pain for many years (he is unable to recall when it began). Nor does he recall taking any medications in the past for long periods, either here in the [place] or in [place]. 1. Pulmonary Fibrosis - Chest CT (09/11): When compared to prior CT (08/2014), there is significant interval worsening of reticular opacities in the periphery of the upper lobes and bases of the bilateral lungs with honeycomb appearance. There is thoracic aorta ectasia and tortuiosity, mild cardiomegaly and mediastinal lympadenopathy; overall consistent with pulmonary fibrosis - ABG: pH 7.44 pO2 71 pCO2 33 - O2 sat: 96% on 3L NC; continue monitoring vital signs - WBC count 3.5; Recommend to order auto-immune/rheumatoid screening with CRP, ESR and KRISTI level; may consider further auto-immune work up with anti-smooth muscle antibodies, rheumatoid factor, anti-CCP - Recommend ordering pulmonary function testing - Will likely require lung biopsy in the near future - Continue IV steroid and duonebs; he will likely require anti-fibrotic agents in the near future, however many of these agents are hepatotoxic, must consider the etiology of the cirrhosis prior to choosing an appropriate agent. 2. Cirrhosis - Ultrasound (09/12/2017): Mild organomegaly (9.8 cm) and heterogenous echogenicity of the liver, consistent with cirrhosis; this was also noted on a previous ultrasound (11/2015): nodular hepatic contour and hepatomegaly at 11.3 cm - AST: 66 & ALT: 29 - Hepatitis and HIV panel negative (09/12) - May consider non-targeted liver biopsy later Past Patient History - Past Medical History & Family History Past Medical History?: No - Past Social History Smoking Status: Never Smoked - CARDIAC Hx Cardiac Disorders: No Hx Angina: No Hx Atrial Fibrillation: No Hx Cardia Arrhythmia: No Hx Circulatory Problems: No Hx Congestive Heart Failure: No Hx Heart Attack: No Hx Heart Murmur: No Hx Heart Transplant: No Hx Hypercholesterolemia: No Hx Hypertension: No (family denies) Hx Hypotension: No Hx Internal Defibrillator: No Hx Mitral Valve Prolapse: No Hx Pacemaker: No Hx Peripheral Edema: No Hx Peripheral Vascular Disease: No - PULMONARY Hx Respiratory Disorders: No Hx Asthma: No Hx Bronchitis: No Hx Chronic Obstructive Pulmonary Disease (COPD): No Hx Emphysema: No Hx Lung Cancer: No Hx Pneumonia: No Hx Pulmonary Edema: No Hx Pulmonary Embolism: No Hx Respiratory Aspiration: No Hx Respiratory Tract Infection: No Hx Sleep Apnea: No Hx Tuberculosis: No - NEUROLOGICAL Hx Neurological Disorder: No Hx Alzheimer's Disease: No HX Cerebrovascular Accident: No Hx Dementia: No Hx Dizziness: No Hx Meningitis: No Hx Migraine: No Hx Multiple Sclerosis: No Hx Paralysis: No Hx Parkinson's Disease: No Hx Seizures: No Hx Syncope: No Hx Transient Ischemic Attacks (TIA): No Hx Vertigo: No - HEENT Hx HEENT Problems: No Hx Blind: No Hx Cataracts: No Hx Deafness: No Hx Difficulty Chewing: No Hx Epistaxis: No Hx Glaucoma: No Hx Macular Degeneration: No Hx Sinusitis: No - RENAL Hx Chronic Kidney Disease: No Hx Dialysis: No Hx Kidney Stones: No Hx Neurogenic Bladder: No Hx Pyelonephritis: No Hx Renal (Kidney) Cancer: No Hx Renal Failure: No - ENDOCRINE/METABOLIC Hx Endocrine Disorders: No Hx Adrenal Cancer: No Hx Diabetes Insipidus: No Hx Diabetes Mellitus Type 1: No Hx Diabetes Mellitus Type 2: No Hx Hyperthyroidism: No Hx Hypothyroidism: No Hx Systemic Lupus Erythematosus: No Other/Comment: DM. DOES NOT KNOW WHICH TYPE OR ORAL MEDICATIONS - HEMATOLOGICAL/ONCOLOGICAL Hx Blood Disorders: No Hx AIDS: No Hx Anemia: No Hx Blood Transfusions: No Hx Blood Transfusion Reaction: No Hx Bruising: No Hx Cancer: No Hx Chemotherapy: No Hx Cirrhosis: No Hx Gum Bleeding: No Hx Hemophilia: No Hx Hepatitis A: No Hx Hepatitis B: No Hx Hepatitis C: No Hx Human Immunodeficiency Virus (HIV): No Hx Leukemia: No Hx Metastesis: No Hx Shingles: No Hx Sickle Cell Disease: No Hx Unexplained Bleeding: No Hx von Willebrand's Disease: No - INTEGUMENTARY Hx Dermatological Problems: No Hx Basil Cell: No Hx Payne: No Hx Cellulitis: No Hx Eczema: No Hx Melanoma: No Hx Psoriasis: No Hx Squamous Cell: No - MUSCULOSKELETAL/RHEUMATOLOGICAL Hx Musculoskeletal Disorders: No Hx Arthritis: Yes Hx Back Pain: No Hx Degenerative Joint Disease: No Hx Falls: No Hx Fractures: No Hx Gout: No Hx Herniated Disk: No Hx Myasthenia Gravis: No Hx Osteoarthritis: No Hx Osteomyelitis: No Hx Osteoporosis: No Hx Rhabdomyolysis: No Hx Rheumatoid Arthritis: No Hx Spinal Stenosis: No Hx Unsteady Gait: No - GASTROINTESTINAL Hx Gastrointestinal Disorders: No Hx Bowel Surgery: No Hx Clostridium Difficile: No Hx Colitis: No Hx Colostomy: No Hx Constipation: No Hx Crohn's Disease: No Hx Diarrhea: No Hx Diverticulitis: No Hx Esophageal Varices: No Hx Fatty Liver Disease: No Hx Gall Bladder Disease: No Hx Gastritis: No Hx Gastroesophageal Reflux: No Hx Hemorrhoids: No Hx Ileostomy: No Hx Irritable Bowel: No Hx Liver Failure: No Hx Nausea: No Hx Pancreatitis: No HX Swallowing Problems: No Hx Ulcer: No Hx Vomiting: No - GENITOURINARY/GYNECOLOGICAL Hx Genitourinary Disorders: No Hx Bladder Cancer: No Hx Bladder Stone: No Hx Hematuria: No Hx Incontinence: No Hx Prostate Cancer: No Hx Prostate Problems: No Hx Reproductive Disorders: No Hx Sexually Transmitted Disorders: No Hx Urinary Tract Infection: No - PSYCHIATRIC Hx Psychophysiologic Disorder: No Hx Anxiety: No Hx Bipolar Disorder: No Hx Depression: No Hx Emotional Abuse: No Hx Hallucinations: No Hx Panic Symptoms: No Hx Paranoia: No Hx Post Traumatic Stress Disorder: No Hx Psychosis: No Hx Physical Abuse: No Hx Schizophrenia: No Hx Sexual Abuse: No Hx Substance Use: No - SURGICAL HISTORY Hx Surgeries: No - ANESTHESIA Hx Anesthesia: No Meds Allergies/Adverse Reactions: Allergies Allergy/AdvReac Type Severity Reaction Status Date / Time No Known Allergies Allergy Verified 09/11/18 16:06 - Medications Medications: Current Medications Albuterol/Ipratropium (Duoneb 3 Mg/0.5 Mg (3 Ml) Ud) 3 ml INH RQ4 [facility] Last Admin: 09/12/18 11:20 Dose: 3 ml Enoxaparin Sodium (Lovenox) 40 mg SC DAILY [facility] Last Admin: 09/12/18 09:26 Dose: 40 mg Famotidine (Pepcid) 20 mg IVP Q12 [facility] Last Admin: 09/12/18 09:26 Dose: 20 mg Guaifenesin (Mucinex La) 600 mg PO BID [facility] Last Admin: 09/12/18 09:26 Dose: 600 mg Azithromycin 500 mg/ Sodium (Chloride) 250 mls @ 250 mls/hr IVPB DAILY [facility]; Protocol Last Admin: 09/12/18 10:30 Dose: 250 mls/hr Ceftriaxone Sodium 1 gm/ (Sodium Chloride) 100 mls @ 100 mls/hr IVPB DAILY [facility]; Protocol Last Admin: 09/12/18 09:26 Dose: 100 mls/hr Latanoprost (Xalatan Opht) 0 ml OU HS [facility] Last Admin: 09/11/18 22:04 Dose: 2.5 ml Methylprednisolone (Solu-Medrol) 60 mg IV Q6 [facility] Last Admin: 09/12/18 12:10 Dose: 60 mg Promethazine HCl/Codeine (Phenergan/Codeine Oral Syrup) 5 ml PO Q6 PRN PRN Reason: Cough Last Admin: 09/12/18 08:56 Dose: 5 ml Results - Vital Signs Recent Vital Signs: Last Vital Signs Temp 98.2 F 09/12/18 15:39 Pulse 90 09/12/18 15:39 Resp 20 09/12/18 15:39 BP 98/57 L 09/12/18 15:39 Pulse Ox 96 09/12/18 15:39 - Labs Result Diagrams: 09/11/18 16:58 09/11/18 16:58 Labs: Laboratory Results - last 24 hr 09/11/18 09/11/18 09/11/18 16:58 16:58 17:00 WBC 3.5 L RBC 4.67 Hgb 14.7 Hct 44.6 MCV 95.4 H D MCH 31.4 H MCHC 32.9 L RDW 14.6 H Plt Count 62 L MPV 8.7 Neut % (Auto) 49.7 L Lymph % (Auto) 36.7 [place] % (Auto) 9.9 Eos % (Auto) 3.3 Baso % (Auto) 0.4 Neut # (Auto) 1.7 L Lymph # (Auto) 1.3 [place] # (Auto) 0.3 Eos # (Auto) 0.1 Baso # (Auto) 0.0 Differential Comment Puncture Site pCO2 pO2 HCO3 ABG pH ABG Total CO2 ABG O2 Saturation ABG Base Excess ABG Hemoglobin ABG Carboxyhemoglobin POC ABG HHb (Measured) ABG Methemoglobin Hemanth Test A-a O2 Difference Respiratory Index Hgb O2 Saturation FiO2 Sodium 139 Potassium 4.0 Chloride 110 H Carbon Dioxide 22 Anion Gap 11 BUN 14 Creatinine 1.0 Est GFR ( Amer) > 60 Est GFR (Non-Af Amer) > 60 Random Glucose 136 H D Calcium 8.0 L Total Bilirubin 0.8 AST 66 H ALT 29 Alkaline Phosphatase 132 H Troponin I < 0.0120 NT-Pro-B Natriuret Pep 407 Total Protein 7.7 Albumin 3.2 L Globulin 4.5 H Albumin/Globulin Ratio 0.7 L Hepatitis A IgM Ab Hep Bs Antigen Hep Bs Antibody Hep B Core IgM Ab Hepatitis C Antibody HIV 1&2 Antibody Screen Influenza Typ A,B (EIA) Negative for flu a/b 09/11/18 09/11/18 09/12/18 17:51 20:45 07:22 WBC RBC Hgb Hct MCV MCH MCHC RDW Plt Count MPV Neut % (Auto) Lymph % (Auto) [place] % (Auto) Eos % (Auto) Baso % (Auto) Neut # (Auto) Lymph # (Auto) [place] # (Auto) Eos # (Auto) Baso # (Auto) Differential Comment Puncture Site Rb pCO2 33 L pO2 71 L HCO3 24.0 ABG pH 7.44 ABG Total CO2 23.4 ABG O2 Saturation 97.5 ABG Base Excess -1.1 ABG Hemoglobin 13.2 ABG Carboxyhemoglobin 2.0 H POC ABG HHb (Measured) 2.4 ABG Methemoglobin 1.3 Hemanth Test Yes A-a O2 Difference 37.0 Respiratory Index 0.5 Hgb O2 Saturation 94.3 L FiO2 21.0 Sodium Potassium Chloride Carbon Dioxide Anion Gap BUN Creatinine Est GFR ( Amer) Est GFR (Non-Af Amer) Random Glucose Calcium Total Bilirubin AST ALT Alkaline Phosphatase Troponin I NT-Pro-B Natriuret Pep Total Protein Albumin Globulin Albumin/Globulin Ratio Hepatitis A IgM Ab Negative Hep Bs Antigen Negative Hep Bs Antibody Hep B Core IgM Ab Negative Hepatitis C Antibody Negative HIV 1&2 Antibody Screen Negative Influenza Typ A,B (EIA) 09/12/18 07:22 WBC RBC Hgb Hct MCV MCH MCHC RDW Plt Count MPV Neut % (Auto) Lymph % (Auto) [place] % (Auto) Eos % (Auto) Baso % (Auto) Neut # (Auto) Lymph # (Auto) [place] # (Auto) Eos # (Auto) Baso # (Auto) Differential Comment Puncture Site pCO2 pO2 HCO3 ABG pH ABG Total CO2 ABG O2 Saturation ABG Base Excess ABG Hemoglobin ABG Carboxyhemoglobin POC ABG HHb (Measured) ABG Methemoglobin Hemanth Test A-a O2 Difference Respiratory Index Hgb O2 Saturation FiO2 Sodium Potassium Chloride Carbon Dioxide Anion Gap BUN Creatinine Est GFR ( Amer) Est GFR (Non-Af Amer) Random Glucose Calcium Total Bilirubin AST ALT Alkaline Phosphatase Troponin I NT-Pro-B Natriuret Pep Total Protein Albumin Globulin Albumin/Globulin Ratio Hepatitis A IgM Ab Hep Bs Antigen Hep Bs Antibody Negative Hep B Core IgM Ab Hepatitis C Antibody HIV 1&2 Antibody Screen Influenza Typ A,B (EIA)
--- NOTE | 2018-09-12 18:52 | CP.PCM.CON ---
History of Present Illness - History of Present Illness History of Present Illness: GI Fellow PGY4, Consult note. Patient is 73M presenting with chest pain and dry cough x 1 month. He was recently in [place] and developed the cough at that time. Chest CT shows honeycombing, and possible fibrosis. He has been complaining of worsening dyspnea on exertion. Never required supplemental oxygen before. We were consulted for cirrhosis. Patient denies any knowledge of previous liver disease. Imaging and labs consistent with cirrhosis have been present since 2015. He denies ever having a liver biopsy, endoscopy or colonoscopy. He firmly denies alcohol use, which daughter supports. He has no family history of liver disease. PMHx - Arthritis PSHx - none FamHx - Denies GI related cancers, liver disease SocHx - Denies smoking or alcohol use. 12pt ROS completed and negative except for above. Past Patient History - Past Medical History & Family History Past Medical History?: No - Past Social History Smoking Status: Never Smoked - CARDIAC Hx Cardiac Disorders: No Hx Angina: No Hx Atrial Fibrillation: No Hx Cardia Arrhythmia: No Hx Circulatory Problems: No Hx Congestive Heart Failure: No Hx Heart Attack: No Hx Heart Murmur: No Hx Heart Transplant: No Hx Hypercholesterolemia: No Hx Hypertension: No (family denies) Hx Hypotension: No Hx Internal Defibrillator: No Hx Mitral Valve Prolapse: No Hx Pacemaker: No Hx Peripheral Edema: No Hx Peripheral Vascular Disease: No - PULMONARY Hx Respiratory Disorders: No Hx Asthma: No Hx Bronchitis: No Hx Chronic Obstructive Pulmonary Disease (COPD): No Hx Emphysema: No Hx Lung Cancer: No Hx Pneumonia: No Hx Pulmonary Edema: No Hx Pulmonary Embolism: No Hx Respiratory Aspiration: No Hx Respiratory Tract Infection: No Hx Sleep Apnea: No Hx Tuberculosis: No - NEUROLOGICAL Hx Neurological Disorder: No Hx Alzheimer's Disease: No HX Cerebrovascular Accident: No Hx Dementia: No Hx Dizziness: No Hx Meningitis: No Hx Migraine: No Hx Multiple Sclerosis: No Hx Paralysis: No Hx Parkinson's Disease: No Hx Seizures: No Hx Syncope: No Hx Transient Ischemic Attacks (TIA): No Hx Vertigo: No - HEENT Hx HEENT Problems: No Hx Blind: No Hx Cataracts: No Hx Deafness: No Hx Difficulty Chewing: No Hx Epistaxis: No Hx Glaucoma: No Hx Macular Degeneration: No Hx Sinusitis: No - RENAL Hx Chronic Kidney Disease: No Hx Dialysis: No Hx Kidney Stones: No Hx Neurogenic Bladder: No Hx Pyelonephritis: No Hx Renal (Kidney) Cancer: No Hx Renal Failure: No - ENDOCRINE/METABOLIC Hx Endocrine Disorders: No Hx Adrenal Cancer: No Hx Diabetes Insipidus: No Hx Diabetes Mellitus Type 1: No Hx Diabetes Mellitus Type 2: No Hx Hyperthyroidism: No Hx Hypothyroidism: No Hx Systemic Lupus Erythematosus: No Other/Comment: DM. DOES NOT KNOW WHICH TYPE OR ORAL MEDICATIONS - HEMATOLOGICAL/ONCOLOGICAL Hx Blood Disorders: No Hx AIDS: No Hx Anemia: No Hx Blood Transfusions: No Hx Blood Transfusion Reaction: No Hx Bruising: No Hx Cancer: No Hx Chemotherapy: No Hx Cirrhosis: No Hx Gum Bleeding: No Hx Hemophilia: No Hx Hepatitis A: No Hx Hepatitis B: No Hx Hepatitis C: No Hx Human Immunodeficiency Virus (HIV): No Hx Leukemia: No Hx Metastesis: No Hx Shingles: No Hx Sickle Cell Disease: No Hx Unexplained Bleeding: No Hx von Willebrand's Disease: No - INTEGUMENTARY Hx Dermatological Problems: No Hx Basil Cell: No Hx Payne: No Hx Cellulitis: No Hx Eczema: No Hx Melanoma: No Hx Psoriasis: No Hx Squamous Cell: No - MUSCULOSKELETAL/RHEUMATOLOGICAL Hx Musculoskeletal Disorders: No Hx Arthritis: Yes Hx Back Pain: No Hx Degenerative Joint Disease: No Hx Falls: No Hx Fractures: No Hx Gout: No Hx Herniated Disk: No Hx Myasthenia Gravis: No Hx Osteoarthritis: No Hx Osteomyelitis: No Hx Osteoporosis: No Hx Rhabdomyolysis: No Hx Rheumatoid Arthritis: No Hx Spinal Stenosis: No Hx Unsteady Gait: No - GASTROINTESTINAL Hx Gastrointestinal Disorders: No Hx Bowel Surgery: No Hx Clostridium Difficile: No Hx Colitis: No Hx Colostomy: No Hx Constipation: No Hx Crohn's Disease: No Hx Diarrhea: No Hx Diverticulitis: No Hx Esophageal Varices: No Hx Fatty Liver Disease: No Hx Gall Bladder Disease: No Hx Gastritis: No Hx Gastroesophageal Reflux: No Hx Hemorrhoids: No Hx Ileostomy: No Hx Irritable Bowel: No Hx Liver Failure: No Hx Nausea: No Hx Pancreatitis: No HX Swallowing Problems: No Hx Ulcer: No Hx Vomiting: No - GENITOURINARY/GYNECOLOGICAL Hx Genitourinary Disorders: No Hx Bladder Cancer: No Hx Bladder Stone: No Hx Hematuria: No Hx Incontinence: No Hx Prostate Cancer: No Hx Prostate Problems: No Hx Reproductive Disorders: No Hx Sexually Transmitted Disorders: No Hx Urinary Tract Infection: No - PSYCHIATRIC Hx Psychophysiologic Disorder: No Hx Anxiety: No Hx Bipolar Disorder: No Hx Depression: No Hx Emotional Abuse: No Hx Hallucinations: No Hx Panic Symptoms: No Hx Paranoia: No Hx Post Traumatic Stress Disorder: No Hx Psychosis: No Hx Physical Abuse: No Hx Schizophrenia: No Hx Sexual Abuse: No Hx Substance Use: No - SURGICAL HISTORY Hx Surgeries: No - ANESTHESIA Hx Anesthesia: No Meds Allergies/Adverse Reactions: Allergies Allergy/AdvReac Type Severity Reaction Status Date / Time No Known Allergies Allergy Verified 09/11/18 16:06 - Medications Medications: Current Medications Albuterol/Ipratropium (Duoneb 3 Mg/0.5 Mg (3 Ml) Ud) 3 ml INH RQ4 [facility] Last Admin: 09/12/18 11:20 Dose: 3 ml Enoxaparin Sodium (Lovenox) 40 mg SC DAILY [facility] Last Admin: 09/12/18 09:26 Dose: 40 mg Famotidine (Pepcid) 20 mg IVP Q12 [facility] Last Admin: 09/12/18 09:26 Dose: 20 mg Azithromycin 500 mg/ Sodium (Chloride) 250 mls @ 250 mls/hr IVPB DAILY [facility]; Protocol Last Admin: 09/12/18 10:30 Dose: 250 mls/hr Ceftriaxone Sodium 1 gm/ (Sodium Chloride) 100 mls @ 100 mls/hr IVPB DAILY [facility]; Protocol Last Admin: 09/12/18 09:26 Dose: 100 mls/hr Latanoprost (Xalatan Opht) 0 ml OU HS [facility] Last Admin: 09/11/18 22:04 Dose: 2.5 ml Methylprednisolone (Solu-Medrol) 60 mg IV Q6 [facility] Last Admin: 09/12/18 17:30 Dose: 60 mg Promethazine HCl/Codeine (Phenergan/Codeine Oral Syrup) 5 ml PO Q6 PRN PRN Reason: Cough Last Admin: 09/12/18 08:56 Dose: 5 ml Physical Exam - Constitutional Appears: Non-toxic, No Acute Distress - Head Exam Head Exam: ATRAUMATIC, NORMAL INSPECTION - Eye Exam Eye Exam: EOMI, Normal appearance - ENT Exam ENT Exam: Mucous Membranes Moist, Normal Exam - Respiratory Exam Respiratory Exam: Clear to Auscultation Bilateral, Wheezes, NORMAL BREATHING PATTERN - Cardiovascular Exam Cardiovascular Exam: REGULAR RHYTHM, +S1, +S2 - GI/Abdominal Exam GI & Abdominal Exam: Normal Bowel Sounds, Soft. absent: Tenderness - Extremities Exam Extremities exam: Positive for: pedal edema - Neurological Exam Neurological exam: Alert, Oriented x3, Reflexes Normal - Psychiatric Exam Psychiatric exam: Normal Affect, Normal Mood - Skin Skin Exam: Dry, Normal Color Results - Vital Signs Recent Vital Signs: Last Vital Signs Temp 98.2 F 09/12/18 15:39 Pulse 90 09/12/18 15:39 Resp 20 09/12/18 15:39 BP 98/57 L 09/12/18 15:39 Pulse Ox 96 09/12/18 15:39 - Labs Result Diagrams: 09/11/18 16:58 09/11/18 16:58 Labs: Laboratory Results - last 24 hr 09/11/18 09/11/18 09/12/18 17:51 20:45 07:22 Puncture Site Rb pCO2 33 L pO2 71 L HCO3 24.0 ABG pH 7.44 ABG Total CO2 23.4 ABG O2 Saturation 97.5 ABG Base Excess -1.1 ABG Hemoglobin 13.2 ABG Carboxyhemoglobin 2.0 H POC ABG HHb (Measured) 2.4 ABG Methemoglobin 1.3 Hemanth Test Yes A-a O2 Difference 37.0 Respiratory Index 0.5 Hgb O2 Saturation 94.3 L FiO2 21.0 Hepatitis A IgM Ab Negative Hep Bs Antigen Negative Hep Bs Antibody Hep B Core IgM Ab Negative Hepatitis C Antibody Negative HIV 1&2 Antibody Screen Negative 09/12/18 07:22 Puncture Site pCO2 pO2 HCO3 ABG pH ABG Total CO2 ABG O2 Saturation ABG Base Excess ABG Hemoglobin ABG Carboxyhemoglobin POC ABG HHb (Measured) ABG Methemoglobin Hemanth Test A-a O2 Difference Respiratory Index Hgb O2 Saturation FiO2 Hepatitis A IgM Ab Hep Bs Antigen Hep Bs Antibody Negative Hep B Core IgM Ab Hepatitis C Antibody HIV 1&2 Antibody Screen Assessment & Plan - Assessment and Plan (Free Text) Assessment: #Cirrhosis of unknown etiology #Suspected fibrosis PLAN: -Labs and imaging reviewed. No mass or acute findings. 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 We will obtain a serum cirrhosis work-up including autoimmune, iron etc. Hep panel was negative and both patient and daughter firmly deny alcohol use. -Wait on liver biopsy and it also may not be necessary. This is not urgent and could be done as an outpatient. -Follow up recommendations of [employer] travel counselor Case discussed with Dr. Nayak. - Date & Time Date: 09/12/18 Time: 18:58
[2018-09-12] MEDS: Latanoprost 2.5 ml Opht Soln OU SCH (21:21)
--- NOTE | 2018-09-12 21:43 | CP.PCM.HP ---
Present on Admission - Present on Admission Any Indicators Present on Admission: No Past Patient History - Past Medical History & Family History Past Medical History?: No - Past Social History Smoking Status: Never Smoked - CARDIAC Hx Cardiac Disorders: No Hx Angina: No Hx Atrial Fibrillation: No Hx Cardia Arrhythmia: No Hx Circulatory Problems: No Hx Congestive Heart Failure: No Hx Heart Attack: No Hx Heart Murmur: No Hx Heart Transplant: No Hx Hypercholesterolemia: No Hx Hypertension: No (family denies) Hx Hypotension: No Hx Internal Defibrillator: No Hx Mitral Valve Prolapse: No Hx Pacemaker: No Hx Peripheral Edema: No Hx Peripheral Vascular Disease: No - PULMONARY Hx Respiratory Disorders: No Hx Asthma: No Hx Bronchitis: No Hx Chronic Obstructive Pulmonary Disease (COPD): No Hx Emphysema: No Hx Lung Cancer: No Hx Pneumonia: No Hx Pulmonary Edema: No Hx Pulmonary Embolism: No Hx Respiratory Aspiration: No Hx Respiratory Tract Infection: No Hx Sleep Apnea: No Hx Tuberculosis: No - NEUROLOGICAL Hx Neurological Disorder: No Hx Alzheimer's Disease: No HX Cerebrovascular Accident: No Hx Dementia: No Hx Dizziness: No Hx Meningitis: No Hx Migraine: No Hx Multiple Sclerosis: No Hx Paralysis: No Hx Parkinson's Disease: No Hx Seizures: No Hx Syncope: No Hx Transient Ischemic Attacks (TIA): No Hx Vertigo: No - HEENT Hx HEENT Problems: No Hx Blind: No Hx Cataracts: No Hx Deafness: No Hx Difficulty Chewing: No Hx Epistaxis: No Hx Glaucoma: No Hx Macular Degeneration: No Hx Sinusitis: No - RENAL Hx Chronic Kidney Disease: No Hx Dialysis: No Hx Kidney Stones: No Hx Neurogenic Bladder: No Hx Pyelonephritis: No Hx Renal (Kidney) Cancer: No Hx Renal Failure: No - ENDOCRINE/METABOLIC Hx Endocrine Disorders: No Hx Adrenal Cancer: No Hx Diabetes Insipidus: No Hx Diabetes Mellitus Type 1: No Hx Diabetes Mellitus Type 2: No Hx Hyperthyroidism: No Hx Hypothyroidism: No Hx Systemic Lupus Erythematosus: No Other/Comment: DM. DOES NOT KNOW WHICH TYPE OR ORAL MEDICATIONS - HEMATOLOGICAL/ONCOLOGICAL Hx Blood Disorders: No Hx AIDS: No Hx Anemia: No Hx Blood Transfusions: No Hx Blood Transfusion Reaction: No Hx Bruising: No Hx Cancer: No Hx Chemotherapy: No Hx Cirrhosis: No Hx Gum Bleeding: No Hx Hemophilia: No Hx Hepatitis A: No Hx Hepatitis B: No Hx Hepatitis C: No Hx Human Immunodeficiency Virus (HIV): No Hx Leukemia: No Hx Metastesis: No Hx Shingles: No Hx Sickle Cell Disease: No Hx Unexplained Bleeding: No Hx von Willebrand's Disease: No - INTEGUMENTARY Hx Dermatological Problems: No Hx Basil Cell: No Hx Payne: No Hx Cellulitis: No Hx Eczema: No Hx Melanoma: No Hx Psoriasis: No Hx Squamous Cell: No - MUSCULOSKELETAL/RHEUMATOLOGICAL Hx Musculoskeletal Disorders: No Hx Arthritis: Yes Hx Back Pain: No Hx Degenerative Joint Disease: No Hx Falls: No Hx Fractures: No Hx Gout: No Hx Herniated Disk: No Hx Myasthenia Gravis: No Hx Osteoarthritis: No Hx Osteomyelitis: No Hx Osteoporosis: No Hx Rhabdomyolysis: No Hx Rheumatoid Arthritis: No Hx Spinal Stenosis: No Hx Unsteady Gait: No - GASTROINTESTINAL Hx Gastrointestinal Disorders: No Hx Bowel Surgery: No Hx Clostridium Difficile: No Hx Colitis: No Hx Colostomy: No Hx Constipation: No Hx Crohn's Disease: No Hx Diarrhea: No Hx Diverticulitis: No Hx Esophageal Varices: No Hx Fatty Liver Disease: No Hx Gall Bladder Disease: No Hx Gastritis: No Hx Gastroesophageal Reflux: No Hx Hemorrhoids: No Hx Ileostomy: No Hx Irritable Bowel: No Hx Liver Failure: No Hx Nausea: No Hx Pancreatitis: No HX Swallowing Problems: No Hx Ulcer: No Hx Vomiting: No - GENITOURINARY/GYNECOLOGICAL Hx Genitourinary Disorders: No Hx Bladder Cancer: No Hx Bladder Stone: No Hx Hematuria: No Hx Incontinence: No Hx Prostate Cancer: No Hx Prostate Problems: No Hx Reproductive Disorders: No Hx Sexually Transmitted Disorders: No Hx Urinary Tract Infection: No - PSYCHIATRIC Hx Psychophysiologic Disorder: No Hx Anxiety: No Hx Bipolar Disorder: No Hx Depression: No Hx Emotional Abuse: No Hx Hallucinations: No Hx Panic Symptoms: No Hx Paranoia: No Hx Post Traumatic Stress Disorder: No Hx Psychosis: No Hx Physical Abuse: No Hx Schizophrenia: No Hx Sexual Abuse: No Hx Substance Use: No - SURGICAL HISTORY Hx Surgeries: No - ANESTHESIA Hx Anesthesia: No Meds Allergies/Adverse Reactions: Allergies Allergy/AdvReac Type Severity Reaction Status Date / Time No Known Allergies Allergy Verified 09/11/18 16:06 Results - Vital Signs Recent Vital Signs: Last Vital Signs Temp 98.2 F 09/12/18 15:39 Pulse 90 09/12/18 15:39 Resp 20 09/12/18 15:39 BP 98/57 L 09/12/18 15:39 Pulse Ox 96 09/12/18 15:39 - Labs Result Diagrams: 09/11/18 16:58 09/11/18 16:58 Labs: Laboratory Results - last 24 hr 09/12/18 09/12/18 07:22 07:22 Hepatitis A IgM Ab Negative Hep Bs Antigen Negative Hep Bs Antibody Negative Hep B Core IgM Ab Negative Hepatitis C Antibody Negative
[2018-09-13] MEDS: Albuterol-Ipratrop 3 mg / 0.5 (3 ml) UD INH SCH ×7 (00:10→21:15)
--- NOTE | 2018-09-13 04:46 | HP ---
CHIEF COMPLIANT: Shortness of breath x2 weeks. HISTORY OF PRESENT ILLNESS: This is a 73-year-old Faro[place] male with history of diabetes and arthritis who was in [facility] back in 07/2018. He stayed there for a month. After that when he came back, he had dry cough and shortness of breath. According to the patient, he was healthy before. The patient saw his primary care physician. He was given Levaquin and Tessalon to treat respiratory tract infection, but the patient's condition did not improve. He continued to take antibiotics, but he has continued to have cough, congestion, shortness of breath, wheezing which got worse, and then he started having lower extremity swelling as well. The patient was referred to emergency room, and he is hospitalized. The patient has generalized weakness, tiredness and he has dyspnea on exertion. He denies any orthopnea or PND. He denies any history of nocturia. He denies any history of polyuria, polydipsia or polyphagia. The patient also has some left-sided chest pain, nonradiating, not associated with diaphoresis or dizziness. He denies any chills, daytime sleepiness, frequent falls, headache, night sweats, snoring, or weakness. He also denies any history of blurring of vision, discharge from the eyes, loss of peripheral vision, or any other visual disturbances. He also denies disequilibrium, dizziness, nasal congestion, nasal trauma, nasal pain, bleeding gums, , or facial pain. He denies any history of claudication, irregular heart rate, or palpitation. He has cough. He has dyspnea at rest, dyspnea on exertion and he is wheezing. He denies any abdominal pain, nausea, vomiting, diarrhea, loose watery stools, or melena. He denies any joint pain, back pain, leg pain, or body pain. He denies any history of hearing problems, tingling, numbness, or paresthesia. He denies any history of anxiety or depression. He denies any history of polyuria or polydipsia. SOCIAL HISTORY: He is nonsmoker, non-EtOH user. CURRENT MEDICATIONS: Levaquin, Xalatan eyedrops, Tessalon Perles, Symbicort, ibuprofen. FAMILY HISTORY: Noncontributory. PHYSICAL EXAMINATION: GENERAL: An elderly male, in no acute distress, lying in the bed comfortably, calm, quiet. VITAL SIGNS: Blood pressure 98/57, pulse 90, respiratory rate 20, temperature 98.2. SKIN: Senile turgor. No bruises. No purpura. No petechiae. HEENT: Atraumatic and normocephalic. Negative pallor. Negative jaundice. Extraocular movements are intact. NECK: Supple. No accessory muscle use. Negative JVD. Negative lymphadenopathy. No thyromegaly. CHEST WALL: Bilateral symmetrical expansion. LUNGS: Bilateral rales all over the lung gardner. Positive rhonchi. CARDIOVASCULAR SYSTEM: PMI in the fifth intercostal space. S1 and S2 regular. No heave. No thrill. ABDOMEN: Soft, nontender. Bowel sounds are positive. EXTREMITIES: +1 pitting edema. The patient also has Heberden's nodes and Cesar's nodes on bilateral hands. ASSESSMENT: 1. Pulmonary fibrosis. The patient has a history of rheumatoid arthritis with reticular nodular pattern which is worsening in the upper lobes on the CAT done. The patient also has basilar bilateral lungs with honeycomb appearance. Most likely, it could be rheumatoid. The patient has mediastinal lymphadenopathy. The patient's pH is 7.44, pCO2 of 33, pO2 of 71, saturation 96%. WBC count is 3.5, so we will do rheumatid arthritis workup. 2. Cirrhosis of liver. The patient has cirrhosis of liver. We will do the workup including hepatitis profile, human immunodeficiency virus. PLAN: Admit. Detailed orders are written. Seen and examined. Kwame Vasquez MD
[2018-09-13] MEDS: MethylPREDNISolone 40 mg Vial IV SCH ×4 (05:36→23:56)
[2018-09-13 07:32] LABS: BASO % 0.1 % (0.0-2.0); HEMOGLOBIN 13.5 g/dL (12.0-18.0); LYMPH # 0.3 K/uL (1.0-4.3); LYMPH % 6.2 % (20.0-40.0); MEAN CELL VOLUME 97.4 fL (80.0-94.0); MEAN CORPUSCULAR HEMOGLOBIN 31.6 pg (27.0-31.0); MEAN CORPUSCULAR HGB CONC 32.5 g/dL (33.0-37.0); MEAN PLATELET VOLUME 9.1 fL (7.2-11.7); MONO # 0.1 K/uL (0.0-0.8); NEUT # 3.9 K/uL (1.8-7.0); NEUT % 90.7 % (50.0-75.0); NRBC % 0.1 % (0.0-2.0); PLATELET COUNT 52 K/uL (130-400); RBC 4.27 Mil/uL (4.40-5.90); WHITE BLOOD COUNT 4.3 K/uL (4.8-10.8)
[2018-09-13 07:36] LABS: INR 1.3; PROTHROMBIN TIME 13.8 SECONDS (9.7-12.2)
[2018-09-13 07:42] LABS: IRON 47 ug/dL (49-181)
[2018-09-13 07:53] LABS: % IRON SATURATION 22 (20-55); TOTAL IRON BINDING CAPACITY 216 ug/dL (250-450)
[2018-09-13 08:09] LABS: ALB/GLOB RATIO 0.7 (1.0-2.1); ALBUMIN 3.2 g/dL (3.5-5.0); ALT/SGPT 29 U/L (21-72); AST/SGOT 47 U/L (17-59); BLOOD UREA NITROGEN 13 mg/dL (9-20); CALCIUM 8.2 mg/dl (8.6-10.4); GFR NON-AFRICAN AMERICAN > 60
[2018-09-13] MEDS: Azithromycin 500 MG in Sodium Chloride 0.9% 250 ML IVPB SCH (10:15)
[2018-09-13 10:16] LABS: ANISOCYTOSIS SLIGHT; BANDS 6 % (0-2); LYMPHOCYTE 5 % (20-40); MONOCYTE 1 % (0-10); NEUTROPHIL 88 % (50-75); PLATELET ESTIMATE DECREASED (NORMAL); TOTAL CELLS COUNTED 100
[2018-09-13] MEDS: Enoxaparin 40 mg Syringe SC SCH (10:16)
[2018-09-13] MEDS: Promethazine/Cod 6.25mg-10mg/5ml Syr UD PO PRN ×2 (10:16→18:56)
--- NOTE | 2018-09-13 12:35 | CARD ---
APPROVED REPORT Date of service: 09/12/2018 EXAM: Two-dimensional and M-mode echocardiogram with Doppler and color Doppler. Other Information Quality : Technically LimitedRhythm : INDICATION Syncope tds RISK FACTORS Diabetes 2D DIMENSIONS IVSd1.0 (0.7-1.1cm)Aortic Root (2D)2.4 (2.0-3.7cm) LVDd3.8 (3.9-5.9cm)PWd1.0 (0.7-1.1cm) LVDs2.7 (2.5-4.0cm)FS (%) 28.0 % LVEF (%)55.0 (>50%) Aortic Valve AoV Peak Trqalxua441.5cm/Carol Peak GR.11mmHg Mitral Valve MV E Ltwgvjau76.0cm/sMV A Dbhvleye86.0cm/sE/A ratio0.8 TDI Lateral E' Peak V15.19cm/sMedial E' Peak V10.29cm/sE/Lateral E'5.0 E/Medial E'7.4 Tricuspid Valve TR Peak Anpyhkzx312pj/sTR Peak Gr.33htBzPITX52lrNt LEFT VENTRICLE The left ventricle is normal size. There is normal left ventricular wall thickness. The left ventricular function is normal. The left ventricular ejection fraction is within the normal range. No regional wall motion abnormalities noted. The left ventricular diastolic function is normal. No left ventricle thrombus noted on this study. There is no ventricular septal defect visualized. There is no left ventricular aneurysm. There is no mass noted in the left ventricle. RIGHT VENTRICLE The right ventricle is normal size. There is normal right ventricular wall thickness. The right ventricular systolic function is normal. ATRIA The left atrium size is normal. The right atrium size is normal. The interatrial septum is intact with no evidence for an atrial septal defect. AORTIC VALVE The aortic valve is normal in structure and function. No aortic regurgitation is present. There is no aortic valvular stenosis. There is no aortic valvular vegetation. MITRAL VALVE The mitral valve is normal in structure and function. There is no evidence of mitral valve prolapse. There is no mitral valve stenosis. There is no mitral valve regurgitation noted. TRICUSPID VALVE The tricuspid valve is normal in structure and function. There is mild tricuspid regurgitation. Right ventricular systolic pressure is estimated at 40-50 mmHg. There is no tricuspid valve prolapse or vegetation. There is no tricuspid valve stenosis. PULMONIC VALVE The pulmonary valve is normal in structure and function. There is no pulmonic valvular regurgitation. There is no pulmonic valvular stenosis. GREAT VESSELS The aortic root is normal in size. The ascending aorta is normal in size. The pulmonary artery is normal. The IVC is normal in size and collapses >50% with inspiration. PERICARDIAL EFFUSION The pericardium appears normal. There is no pleural effusion. <Conclusion> The left ventricular function is normal. The left ventricular ejection fraction is within the normal range. No regional wall motion abnormalities noted.
--- NOTE | 2018-09-13 13:39 | PN ---
DATE: 09/13/2017 LOCATION: 552, bed B. SUBJECTIVE: This is a 73-year-old female, seen and examined in rounds early in the morning without significant clinical changes, ultrasound done yesterday indicative of possible liver cirrhosis with mild splenomegaly. The patient denied any actual GI bleeding, nausea, or vomiting. Seen by Dr. Abraham Austin for evaluation from a cardiology point of view. Most recent lab results showed low white blood cells with thrombocytopenia of 52, but normal hemoglobin and hematocrit with low CO2 content of 18. Blood glucose level 356, calcium 8.2, with abnormally low iron study, but normal liver function test with albumin of 3.2. Hepatitis profile was reported to be negative. PHYSICAL EXAMINATION: GENERAL: A 73-year-old male. VITAL SIGNS: Afebrile with pulse of 106, respiratory rate 20 to 22, blood pressure 115/64. HEENT: Showed pale, dry, oral mucoid membranes. Nonicteric sclerae. LUNGS: Few scattered crepitations. Decreased air entry at bases. HEART: Positive for S1 and S2. ABDOMEN: Soft with mild generalized tenderness. NEUROLOGICAL: No reported new neurological deficits sensory or motor. IMPRESSION: 1. Liver cirrhosis with evidence of portal hypertension by radiology study results. 2. Thrombocytopenia which could be secondary to above. 3. Multiple past medical history including mainly but not limited to diabetes mellitus, osteoarthritis, peptic ulcer disease, insomnia, with possible new episodes of acute bronchitis or early stage of pneumonia with intermittent periods of shortness of breath with dyspnea on exertion. SUGGESTIONS: 1. Agree with your plan. 2. Followup cancer markers including but not limited CEA, alpha-fetoprotein, and PSA as well as CA 19-9. 3. Lasix p.o. as well as Aldactone p.o. small dose in the meantime. 4. Hematology/Oncology reevaluation due to the patient's severe thrombocytopenia. Further recommendations to follow. Fern Frazier MD
--- NOTE | 2018-09-13 13:41 | CP.PCM.PN ---
<Peter Jackson - Last Filed: 09/13/18 17:48> Subjective - Date & Time of Evaluation Date of Evaluation: 09/13/18 Time of Evaluation: 13:41 - Subjective Subjective: Progress Note: Dr. Austin Service Patient seen and examined at bedside. Patient still reports some chest pain that comes and goes. Patient denies any abdominal pain, fevers, chills, nausea, vomiting, headaches. Objective - Vital Signs/Intake and Output Vital Signs (last 24 hours): Temp Pulse Resp BP Pulse Ox 97.9 F 115 H 20 111/50 L 98 09/13/18 08:00 09/13/18 12:00 09/13/18 08:00 09/13/18 08:00 09/13/18 08:00 - Medications Medications: Current Medications Albuterol/Ipratropium (Duoneb 3 Mg/0.5 Mg (3 Ml) Ud) 3 ml INH RQ4 MELISSA Last Admin: 09/13/18 07:25 Dose: 3 ml Enoxaparin Sodium (Lovenox) 40 mg SC DAILY MELISSA Last Admin: 09/13/18 10:16 Dose: 40 mg Famotidine (Pepcid) 20 mg IVP Q12 MELISSA Last Admin: 09/13/18 10:18 Dose: 20 mg Azithromycin 500 mg/ Sodium (Chloride) 250 mls @ 250 mls/hr IVPB DAILY MELISSA; Protocol Last Admin: 09/13/18 10:15 Dose: 250 mls/hr Ceftriaxone Sodium 1 gm/ (Sodium Chloride) 100 mls @ 100 mls/hr IVPB DAILY MELISSA; Protocol Last Admin: 09/13/18 09:30 Dose: 100 mls/hr Latanoprost (Xalatan Opht) 0 ml OU HS MELISSA Last Admin: 09/12/18 21:21 Dose: 2.5 ml Methylprednisolone (Solu-Medrol) 60 mg IV Q6 MELISSA Last Admin: 09/13/18 12:35 Dose: 60 mg Promethazine HCl/Codeine (Phenergan/Codeine Oral Syrup) 5 ml PO Q6 PRN PRN Reason: Cough Last Admin: 09/13/18 10:16 Dose: 5 ml - Labs Labs: 09/13/18 07:09 09/13/18 07:09 PT 13.8 SECONDS (9.7-12.2) H 09/13/18 07:09 INR 1.3 09/13/18 07:09 - Head Exam Head Exam: ATRAUMATIC, NORMAL INSPECTION - Eye Exam Eye Exam: EOMI, Normal appearance, PERRL Pupil Exam: NORMAL ACCOMODATION, PERRL. absent: Irregular, Unequal - ENT Exam ENT Exam: Mucous Membranes Moist, Normal Oropharynx - Respiratory Exam Respiratory Exam: Clear to Ausculation Bilateral, NORMAL BREATHING PATTERN. absent: Prolonged Expiratory Phase, Respiratory Distress - Cardiovascular Exam Cardiovascular Exam: Tachycardia, +S1, +S2 - GI/Abdominal Exam GI & Abdominal Exam: Soft, Normal Bowel Sounds. absent: Hyperactive Bowel Sounds - Extremities Exam Extremities Exam: Full ROM. absent: Pedal Edema - Back Exam Back Exam: NORMAL INSPECTION. absent: paraspinal tenderness - Neurological Exam Neurological Exam: Alert, Awake - Psychiatric Exam Psychiatric exam: Normal Affect, Normal Mood - Skin Skin Exam: Dry, Intact Assessment and Plan - Assessment and Plan (Free Text) Assessment: 73 year old man with a past medical history of insomnia, arthritis, and diabetes presents to the hospital fora cough and chest pain he reports for the past one month. Plan: 1. Chest pain -EKG upon admission: NSR @[address] segment elevations/depressions -Troponin (-) x 2. Will trend -bnp 407 upon admission. -Echo taken. Final read pending. Will f/u with results. 2.Cough Promethazine 5ml PO Q6PRN Mucinex 600mg PO BID Solu-medrol 60mg IV q6 melissa 3. Tachycardia -Likely 2/2 to dehydration -Recommend NS @80cc/hr for 24 hours. ppx -Lovenox -Pepcid Plan discussed with Dr. Austin. Peter Jackson, PGY-2 <Abraham Austin - Last Filed: 09/14/18 00:13> Objective - Vital Signs/Intake and Output Vital Signs (last 24 hours): Temp Pulse Resp BP Pulse Ox 97.4 F L 109 H 20 101/57 L 100 09/13/18 15:00 09/13/18 18:00 09/13/18 15:00 09/13/18 15:00 09/13/18 15:00 - Medications Medications: Current Medications Albuterol/Ipratropium (Duoneb 3 Mg/0.5 Mg (3 Ml) Ud) 3 ml INH RQ4 MELISSA Last Admin: 09/13/18 21:15 Dose: 3 ml Enoxaparin Sodium (Lovenox) 40 mg SC DAILY MELISSA Last Admin: 09/13/18 10:16 Dose: 40 mg Famotidine (Pepcid) 20 mg IVP Q12 MELISSA Last Admin: 09/13/18 21:30 Dose: 20 mg Azithromycin 500 mg/ Sodium (Chloride) 250 mls @ 250 mls/hr IVPB DAILY MELISSA; Protocol Last Admin: 09/13/18 10:15 Dose: 250 mls/hr Ceftriaxone Sodium 1 gm/ (Sodium Chloride) 100 mls @ 100 mls/hr IVPB DAILY MELISSA; Protocol Last Admin: 09/13/18 09:30 Dose: 100 mls/hr Insulin Human Regular (Novolin R) 0 unit SC ACHS MELISSA; Protocol Latanoprost (Xalatan Opht) 0 ml OU HS MELISSA Last Admin: 09/13/18 21:29 Dose: 2.5 ml Methylprednisolone (Solu-Medrol) 60 mg IV Q6 MELISSA Last Admin: 09/13/18 23:56 Dose: 60 mg Promethazine HCl/Codeine (Phenergan/Codeine Oral Syrup) 5 ml PO Q6 PRN PRN Reason: Cough Last Admin: 09/13/18 18:56 Dose: 5 ml - Labs Labs: 09/13/18 07:09 09/13/18 07:09 PT 13.8 SECONDS (9.7-12.2) H 09/13/18 07:09 INR 1.3 09/13/18 07:09 Assessment and Plan - Assessment and Plan (Free Text) Assessment: Patient seen and evaluated personally by me. Plan of care d/w the the resident and as documented
--- NOTE | 2018-09-13 14:27 | CP.PCM.PN ---
Subjective - Date & Time of Evaluation Date of Evaluation: 09/13/18 Time of Evaluation: 14:24 - Subjective Subjective: Looks better today. Off nasal cannula eating lunch. Appears comfortable, less coughing. I discussed with daughter my thoughts on his cirrhosis. Objective - Vital Signs/Intake and Output Vital Signs (last 24 hours): Temp Pulse Resp BP Pulse Ox 97.9 F 115 H 20 111/50 L 98 09/13/18 08:00 09/13/18 12:00 09/13/18 08:00 09/13/18 08:00 09/13/18 08:00 - Medications Medications: Current Medications Albuterol/Ipratropium (Duoneb 3 Mg/0.5 Mg (3 Ml) Ud) 3 ml INH RQ4 JULES Last Admin: 09/13/18 07:25 Dose: 3 ml Enoxaparin Sodium (Lovenox) 40 mg SC DAILY JULES Last Admin: 09/13/18 10:16 Dose: 40 mg Famotidine (Pepcid) 20 mg IVP Q12 JULES Last Admin: 09/13/18 10:18 Dose: 20 mg Azithromycin 500 mg/ Sodium (Chloride) 250 mls @ 250 mls/hr IVPB DAILY JULES; Protocol Last Admin: 09/13/18 10:15 Dose: 250 mls/hr Ceftriaxone Sodium 1 gm/ (Sodium Chloride) 100 mls @ 100 mls/hr IVPB DAILY JULES; Protocol Last Admin: 09/13/18 09:30 Dose: 100 mls/hr Latanoprost (Xalatan Opht) 0 ml OU HS JULES Last Admin: 09/12/18 21:21 Dose: 2.5 ml Methylprednisolone (Solu-Medrol) 60 mg IV Q6 JULES Last Admin: 09/13/18 12:35 Dose: 60 mg Promethazine HCl/Codeine (Phenergan/Codeine Oral Syrup) 5 ml PO Q6 PRN PRN Reason: Cough Last Admin: 09/13/18 10:16 Dose: 5 ml - Labs Labs: 09/13/18 07:09 09/13/18 07:09 PT 13.8 SECONDS (9.7-12.2) H 09/13/18 07:09 INR 1.3 09/13/18 07:09 - Constitutional Appears: Non-toxic, No Acute Distress - Head Exam Head Exam: ATRAUMATIC, NORMAL INSPECTION - ENT Exam ENT Exam: Mucous Membranes Moist, Normal Exam - Respiratory Exam Respiratory Exam: Clear to Ausculation Bilateral, NORMAL BREATHING PATTERN Additional comments: Inspiratory crackles present b/l base of lungs - Cardiovascular Exam Cardiovascular Exam: REGULAR RHYTHM, +S1, +S2 - GI/Abdominal Exam GI & Abdominal Exam: Soft, Normal Bowel Sounds. absent: Tenderness - Extremities Exam Extremities Exam: Normal Inspection. absent: Pedal Edema - Neurological Exam Neurological Exam: Alert, Awake, Oriented x3 - Psychiatric Exam Psychiatric exam: Normal Affect, Normal Mood - Skin Skin Exam: Dry, Normal Color Assessment and Plan - Assessment and Plan (Free Text) Assessment: #Cirrhosis of unknown etiology #Suspected fibrosis PLAN: -Labs and imaging reviewed. No mass or acute findings. 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 We will obtain a serum cirrhosis work-up including autoimmune, iron etc. Hep panel was negative and both patient and daughter firmly deny alcohol use. -Wait on liver biopsy and it also may not be necessary. This is not urgent and could be done as an outpatient. -Follow up recommendations of hand edger Case discussed with Dr. Nayak.
--- NOTE | 2018-09-13 15:36 | CP.PCM.PN ---
Subjective - Date & Time of Evaluation Date of Evaluation: 09/13/18 Time of Evaluation: 12:25 - Subjective Subjective: Mr. Mortensen was seen and examined at bedside this morning. He is resting comfortably in bed. No acute events noted overnight. At this time, patient states that he feels much better compared to yesterday since starting medications. His cough is still present. Currently denies any chest pain, nausea, vomiting or hemoptysis. No other complaints noted at this time. Exam: Gen: No acute distress. AAOx3 HEENT: Moist mucosa. Card: RRRR. Lungs: Unlabored breathing, improved since yesterday. Symmetric chest excursions. (+) Diffuse rhonchi with mild expiratory wheezing noted Abd: Soft, non-distended. Normal bowel sounds. No tenderness to palpation. Ext: (+) 1+ pitting edema to the anterior shins bilaterally A&P: 1. Pulmonary Fibrosis - Chest CT (09/11): When compared to prior CT (08/2014), there is significant interval worsening of reticular opacities in the periphery of the upper lobes and bases of the bilateral lungs with honeycomb appearance. There is thoracic aorta ectasia and tortuiosity, mild cardiomegaly and mediastinal lympadenopathy; overall consistent with pulmonary fibrosis - O2 sat: 98% on 3L NC; continue monitoring vital signs - KRISTI negative. Auto-immune panel still pending - Recommend ordering pulmonary function testing - Continue IV steroid and duonebs, phenergan + codeine for cough Objective - Vital Signs/Intake and Output Vital Signs (last 24 hours): Temp Pulse Resp BP Pulse Ox 97.9 F 115 H 20 111/50 L 98 09/13/18 08:00 09/13/18 12:00 09/13/18 08:00 09/13/18 08:00 09/13/18 08:00 - Medications Medications: Current Medications Albuterol/Ipratropium (Duoneb 3 Mg/0.5 Mg (3 Ml) Ud) 3 ml INH RQ4 [facility] Last Admin: 09/13/18 07:25 Dose: 3 ml Enoxaparin Sodium (Lovenox) 40 mg SC DAILY [facility] Last Admin: 09/13/18 10:16 Dose: 40 mg Famotidine (Pepcid) 20 mg IVP Q12 [facility] Last Admin: 09/13/18 10:18 Dose: 20 mg Azithromycin 500 mg/ Sodium (Chloride) 250 mls @ 250 mls/hr IVPB DAILY JULES; Protocol Last Admin: 09/13/18 10:15 Dose: 250 mls/hr Ceftriaxone Sodium 1 gm/ (Sodium Chloride) 100 mls @ 100 mls/hr IVPB DAILY JULES; Protocol Last Admin: 09/13/18 09:30 Dose: 100 mls/hr Latanoprost (Xalatan Opht) 0 ml OU HS JULES Last Admin: 09/12/18 21:21 Dose: 2.5 ml Methylprednisolone (Solu-Medrol) 60 mg IV Q6 JULES Last Admin: 09/13/18 12:35 Dose: 60 mg Promethazine HCl/Codeine (Phenergan/Codeine Oral Syrup) 5 ml PO Q6 PRN PRN Reason: Cough Last Admin: 09/13/18 10:16 Dose: 5 ml - Labs Labs: 09/13/18 07:09 09/13/18 07:09 PT 13.8 SECONDS (9.7-12.2) H 09/13/18 07:09 INR 1.3 09/13/18 07:09
[2018-09-13] MEDS: Latanoprost 2.5 ml Opht Soln OU SCH (21:29)
--- NOTE | 2018-09-13 22:55 | CP.PCM.PN ---
Subjective - Date & Time of Evaluation Date of Evaluation: 09/13/18 Time of Evaluation: 20:41 - Subjective Subjective: dictated Objective - Vital Signs/Intake and Output Vital Signs (last 24 hours): Temp Pulse Resp BP Pulse Ox 97.4 F L 109 H 20 101/57 L 100 09/13/18 15:00 09/13/18 18:00 09/13/18 15:00 09/13/18 15:00 09/13/18 15:00 - Medications Medications: Current Medications Albuterol/Ipratropium (Duoneb 3 Mg/0.5 Mg (3 Ml) Ud) 3 ml INH RQ4 [facility] Last Admin: 09/13/18 21:15 Dose: 3 ml Enoxaparin Sodium (Lovenox) 40 mg SC DAILY [facility] Last Admin: 09/13/18 10:16 Dose: 40 mg Famotidine (Pepcid) 20 mg IVP Q12 [facility] Last Admin: 09/13/18 21:30 Dose: 20 mg Azithromycin 500 mg/ Sodium (Chloride) 250 mls @ 250 mls/hr IVPB DAILY [facility]; Protocol Last Admin: 09/13/18 10:15 Dose: 250 mls/hr Ceftriaxone Sodium 1 gm/ (Sodium Chloride) 100 mls @ 100 mls/hr IVPB DAILY [facility]; Protocol Last Admin: 09/13/18 09:30 Dose: 100 mls/hr Insulin Human Regular (Novolin R) 0 unit SC ACHS [facility]; Protocol Latanoprost (Xalatan Opht) 0 ml OU HS [facility] Last Admin: 09/13/18 21:29 Dose: 2.5 ml Methylprednisolone (Solu-Medrol) 60 mg IV Q6 [facility] Last Admin: 09/13/18 18:50 Dose: 60 mg Promethazine HCl/Codeine (Phenergan/Codeine Oral Syrup) 5 ml PO Q6 PRN PRN Reason: Cough Last Admin: 09/13/18 18:56 Dose: 5 ml - Labs Labs: 09/13/18 07:09 09/13/18 07:09 PT 13.8 SECONDS (9.7-12.2) H 09/13/18 07:09 INR 1.3 09/13/18 07:09
[2018-09-14] MEDS: Albuterol-Ipratrop 3 mg / 0.5 (3 ml) UD INH SCH ×6 (00:32→20:00)
[2018-09-14] MEDS: MethylPREDNISolone 40 mg Vial IV SCH ×4 (06:01→23:57)
--- NOTE | 2018-09-14 06:17 | PN ---
DATE: 09/13/2018 CHIEF COMPLAINT: Today, the patient is less short of breath, less cough, less wheezing,. The patient has been seen by Pulmonary. Workup is in progress. The patient is in the bed. Overnight, no acute events; however, he feels short of breath on exertion. He has minimal edema. He denies any fever, chills, or rigor. A CT of the chest has been reviewed and it shows reticular opacities, and they have been compared with previous CAT scan. PHYSICAL EXAMINATION: VITAL SIGNS: Blood pressure is 101/57, pulse 109, respiratory rate 20, temperature 97.4. LUNGS: Decreased air entry. Positive rales and positive rhonchi. CARDIOVASCULAR SYSTEM: S1 and S2 are regular. ABDOMEN: Soft. ASSESSMENT: 1. Interstitial lung disease, etiology unclear. 2. Steroid-induced diabetes. PLAN: Continue current medications. Taper steroids. Echocardiogram is normal. Abdominal ultrasound shows cirrhosis. The patient although denies any heavy drinking. We will monitor the patient. Labs have been reviewed. Kwame Vasquez MD
[2018-09-14 08:34] LABS: CERULOPLASMIN 25 mg/dL (18-36)
[2018-09-14] MEDS: (Novolin R) Insulin Human Regular 100 units/ml vial SC SCH ×4 (08:39→21:05)
[2018-09-14] MEDS: Enoxaparin 40 mg Syringe SC SCH (09:26)
[2018-09-14] MEDS: Azithromycin 500 MG in Sodium Chloride 0.9% 250 ML IVPB SCH (10:55)
[2018-09-14 13:03] LABS: ABG ALLEN TEST POS; ARTERIAL BLOOD GAS HCO3 21.4 mmol/L (21-28); ARTERIAL BLOOD GAS HEMOGLOBIN 12.7 g/dL (11.7-17.4); ARTERIAL BLOOD GAS O2 SAT 94.5 % (95-98); ARTERIAL BLOOD GAS PCO2 35 mm/Hg (35-45); ARTERIAL BLOOD GAS PH 7.37 (7.35-7.45); ARTERIAL BLOOD GAS PO2 60 mm/Hg (80-100); ARTERIAL BLOOD GAS TCO2 21.3 mmol/L (22-28)
--- NOTE | 2018-09-14 15:20 | CP.PCM.PN ---
Subjective - Date & Time of Evaluation Date of Evaluation: 09/14/18 Time of Evaluation: 10:00 - Subjective Subjective: Mr. Mortensen was seen and examined at bedside this morning. He is resting comfortably in bed. No acute events noted overnight. Patient reports feeling better today, breathing has improved. A mild cough is still present. Currently denies any chest pain, nausea, vomiting or hemoptysis. No other complaints noted at this time. Exam: Gen: No acute distress. AAOx3 HEENT: Moist mucosa. Card: RRRR. Lungs: Unlabored breathing, improved since yesterday. Symmetric chest excursions. (+) Diffuse rhonchi with mild expiratory wheezing noted Abd: Soft, non-distended. Normal bowel sounds. No tenderness to palpation. Ext: (+) 1+ pitting edema to the anterior shins bilaterally A&P: 1. Pulmonary Fibrosis - Chest CT (09/11): When compared to prior CT (08/2014), there is significant interval worsening of reticular opacities in the periphery of the upper lobes and bases of the bilateral lungs with honeycomb appearance. There is thoracic aorta ectasia and tortuiosity, mild cardiomegaly and mediastinal lympadenopathy; overall consistent with pulmonary fibrosis - O2 sat: 98% on 3L NC; continue monitoring vital signs - KRISTI negative. Alpha 1 antitrypsin, ceruloplasmin, CA19-9 and AFP normal range. CEA slightly elevated. Auto-immune panel still pending - Continue IV steroid and duonebs, phenergan + codeine for cough Objective - Vital Signs/Intake and Output Vital Signs (last 24 hours): Temp Pulse Resp BP Pulse Ox 97.3 F L 108 H 20 106/65 95 09/14/18 07:52 09/14/18 07:52 09/14/18 07:52 09/14/18 07:52 09/14/18 07:52 - Medications Medications: Current Medications Albuterol/Ipratropium (Duoneb 3 Mg/0.5 Mg (3 Ml) Ud) 3 ml INH RQ4 [facility] Last Admin: 09/14/18 11:25 Dose: 3 ml Enoxaparin Sodium (Lovenox) 40 mg SC DAILY [facility] Last Admin: 09/14/18 09:26 Dose: 40 mg Famotidine (Pepcid) 20 mg IVP Q12 [facility] Last Admin: 09/14/18 09:26 Dose: 20 mg Azithromycin 500 mg/ Sodium (Chloride) 250 mls @ 250 mls/hr IVPB DAILY [facility]; Protocol Last Admin: 09/14/18 10:55 Dose: 250 mls/hr Ceftriaxone Sodium 1 gm/ (Sodium Chloride) 100 mls @ 100 mls/hr IVPB DAILY [facility]; Protocol Last Admin: 09/14/18 09:25 Dose: 100 mls/hr Insulin Human Regular (Novolin R) 0 unit SC ACHS [facility]; Protocol Last Admin: 09/14/18 13:13 Dose: 4 unit Latanoprost (Xalatan Opht) 0 ml OU HS [facility] Last Admin: 09/13/18 21:29 Dose: 2.5 ml Methylprednisolone (Solu-Medrol) 60 mg IV Q6 [facility] Last Admin: 09/14/18 11:57 Dose: 60 mg Promethazine HCl/Codeine (Phenergan/Codeine Oral Syrup) 5 ml PO Q6 PRN PRN Reason: Cough Last Admin: 09/13/18 18:56 Dose: 5 ml - Labs Labs: 09/13/18 07:09 09/13/18 07:09 PT 13.8 SECONDS (9.7-12.2) H 09/13/18 07:09 INR 1.3 09/13/18 07:09
--- NOTE | 2018-09-14 17:01 | CP.PCM.PN ---
Subjective - Date & Time of Evaluation Date of Evaluation: 09/14/18 Time of Evaluation: 16:58 - Subjective Subjective: No complaints. Tolerating diet. Cough improving. Objective - Vital Signs/Intake and Output Vital Signs (last 24 hours): Temp Pulse Resp BP Pulse Ox 98 F 105 H 20 110/68 96 09/14/18 15:33 09/14/18 15:33 09/14/18 15:33 09/14/18 15:33 09/14/18 15:33 - Medications Medications: Current Medications Albuterol/Ipratropium (Duoneb 3 Mg/0.5 Mg (3 Ml) Ud) 3 ml INH RQ4 [facility] Last Admin: 09/14/18 11:25 Dose: 3 ml Enoxaparin Sodium (Lovenox) 40 mg SC DAILY [facility] Last Admin: 09/14/18 09:26 Dose: 40 mg Famotidine (Pepcid) 20 mg IVP Q12 [facility] Last Admin: 09/14/18 09:26 Dose: 20 mg Azithromycin 500 mg/ Sodium (Chloride) 250 mls @ 250 mls/hr IVPB DAILY [facility]; Protocol Last Admin: 09/14/18 10:55 Dose: 250 mls/hr Ceftriaxone Sodium 1 gm/ (Sodium Chloride) 100 mls @ 100 mls/hr IVPB DAILY [facility]; Protocol Last Admin: 09/14/18 09:25 Dose: 100 mls/hr Insulin Human Regular (Novolin R) 0 unit SC ACHS [facility]; Protocol Last Admin: 09/14/18 13:13 Dose: 4 unit Latanoprost (Xalatan Opht) 0 ml OU HS [facility] Last Admin: 09/13/18 21:29 Dose: 2.5 ml Methylprednisolone (Solu-Medrol) 60 mg IV Q6 [facility] Last Admin: 09/14/18 11:57 Dose: 60 mg Promethazine HCl/Codeine (Phenergan/Codeine Oral Syrup) 5 ml PO Q6 PRN PRN Reason: Cough Last Admin: 09/13/18 18:56 Dose: 5 ml - Labs Labs: 09/13/18 07:09 09/13/18 07:09 PT 13.8 SECONDS (9.7-12.2) H 09/13/18 07:09 INR 1.3 09/13/18 07:09 - Constitutional Appears: Non-toxic, No Acute Distress - Respiratory Exam Respiratory Exam: Clear to Ausculation Bilateral, NORMAL BREATHING PATTERN Additional comments: inspiratory crackles b/l base - Cardiovascular Exam Cardiovascular Exam: REGULAR RHYTHM, +S1, +S2 - GI/Abdominal Exam GI & Abdominal Exam: Soft, Normal Bowel Sounds. absent: Tenderness - Extremities Exam Extremities Exam: Normal Inspection. absent: Pedal Edema - Neurological Exam Neurological Exam: Alert, Awake - Psychiatric Exam Psychiatric exam: Normal Affect, Normal Mood - Skin Skin Exam: Normal Color, Warm Assessment and Plan - Assessment and Plan (Free Text) Assessment: #Compensated Cirrhosis of unknown etiology #Suspected fibrosis #Thrombocytopenia PLAN: -Labs and imaging reviewed. No mass or acute findings of liver. 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 We will obtain a serum cirrhosis work-up including autoimmune, iron etc. Hep panel was negative and both patient and daughter firmly denies alcohol use. -So far work-up has been negative for cirrhosis. -MELD 12 -Wait on liver biopsy and it also may not be necessary due to poor risk-benefit ratio, especially with thrombocytopenia. This is not urgent and could be done as an outpatient. -Follow up recommendations of solution developer -Recommend outpatient EGD to screen for varices -Recommend U/S every 6 months to screen for HCC. Case discussed with Dr. Nayak.
[2018-09-14] MEDS: Latanoprost 2.5 ml Opht Soln OU SCH (21:40)
--- NOTE | 2018-09-14 22:02 | CP.PCM.PN ---
Subjective - Date & Time of Evaluation Date of Evaluation: 09/14/18 Time of Evaluation: 22:01 - Subjective Subjective: Patient seen and evaluated Denies chest pain and dyspnea No cardiac events noted Objective - Vital Signs/Intake and Output Vital Signs (last 24 hours): Temp Pulse Resp BP Pulse Ox 98 F 101 H 20 110/68 96 09/14/18 15:33 09/14/18 19:34 09/14/18 15:33 09/14/18 15:33 09/14/18 15:33 - Medications Medications: Current Medications Albuterol/Ipratropium (Duoneb 3 Mg/0.5 Mg (3 Ml) Ud) 3 ml INH RQ4 [facility] Last Admin: 09/14/18 11:25 Dose: 3 ml Enoxaparin Sodium (Lovenox) 40 mg SC DAILY [facility] Last Admin: 09/14/18 09:26 Dose: 40 mg Famotidine (Pepcid) 20 mg IVP Q12 [facility] Last Admin: 09/14/18 21:41 Dose: 20 mg Azithromycin 500 mg/ Sodium (Chloride) 250 mls @ 250 mls/hr IVPB DAILY [facility]; Protocol Last Admin: 09/14/18 10:55 Dose: 250 mls/hr Ceftriaxone Sodium 1 gm/ (Sodium Chloride) 100 mls @ 100 mls/hr IVPB DAILY [facility]; Protocol Last Admin: 09/14/18 09:25 Dose: 100 mls/hr Insulin Human Regular (Novolin R) 0 unit SC ACHS [facility]; Protocol Last Admin: 09/14/18 21:05 Dose: Not Given Latanoprost (Xalatan Opht) 0 ml OU HS [facility] Last Admin: 09/14/18 21:40 Dose: 2.5 ml Methylprednisolone (Solu-Medrol) 60 mg IV Q6 [facility] Last Admin: 09/14/18 17:15 Dose: 60 mg Promethazine HCl/Codeine (Phenergan/Codeine Oral Syrup) 5 ml PO Q6 PRN PRN Reason: Cough Last Admin: 09/13/18 18:56 Dose: 5 ml - Labs Labs: 09/13/18 07:09 09/13/18 07:09 PT 13.8 SECONDS (9.7-12.2) H 09/13/18 07:09 INR 1.3 09/13/18 07:09
--- NOTE | 2018-09-14 23:31 | CP.PCM.PN ---
Subjective - Date & Time of Evaluation Date of Evaluation: 09/14/18 Time of Evaluation: 07:40 - Subjective Subjective: dictated Objective - Vital Signs/Intake and Output Vital Signs (last 24 hours): Temp Pulse Resp BP Pulse Ox 98 F 101 H 20 110/68 96 09/14/18 15:33 09/14/18 19:34 09/14/18 15:33 09/14/18 15:33 09/14/18 15:33 - Medications Medications: Current Medications Albuterol/Ipratropium (Duoneb 3 Mg/0.5 Mg (3 Ml) Ud) 3 ml INH RQ4 [facility] Last Admin: 09/14/18 20:00 Dose: Not Given Enoxaparin Sodium (Lovenox) 40 mg SC DAILY [facility] Last Admin: 09/14/18 09:26 Dose: 40 mg Famotidine (Pepcid) 20 mg IVP Q12 [facility] Last Admin: 09/14/18 21:41 Dose: 20 mg Azithromycin 500 mg/ Sodium (Chloride) 250 mls @ 250 mls/hr IVPB DAILY [facility]; Protocol Last Admin: 09/14/18 10:55 Dose: 250 mls/hr Ceftriaxone Sodium 1 gm/ (Sodium Chloride) 100 mls @ 100 mls/hr IVPB DAILY [facility]; Protocol Last Admin: 09/14/18 09:25 Dose: 100 mls/hr Insulin Human Regular (Novolin R) 0 unit SC ACHS [facility]; Protocol Last Admin: 09/14/18 21:05 Dose: Not Given Latanoprost (Xalatan Opht) 0 ml OU HS [facility] Last Admin: 09/14/18 21:40 Dose: 2.5 ml Methylprednisolone (Solu-Medrol) 60 mg IV Q6 [facility] Last Admin: 09/14/18 17:15 Dose: 60 mg Promethazine HCl/Codeine (Phenergan/Codeine Oral Syrup) 5 ml PO Q6 PRN PRN Reason: Cough Last Admin: 09/13/18 18:56 Dose: 5 ml - Labs Labs: 09/13/18 07:09 09/13/18 07:09 PT 13.8 SECONDS (9.7-12.2) H 09/13/18 07:09 INR 1.3 09/13/18 07:09
[2018-09-15] MEDS: Albuterol-Ipratrop 3 mg / 0.5 (3 ml) UD INH SCH ×4 (01:12→11:40)
--- NOTE | 2018-09-15 04:19 | PN ---
DATE: 09/14/2018 SUBJECTIVE: The patient, Festus, is feeling better, less short of breath, less cough, less wheezing. His room air ABG showed pO2 of 63 with pCO2 of 35. PHYSICAL EXAMINATION: VITAL SIGNS: Blood pressure 109/69, pulse 102, respiratory rate 20, and temperature 97.8. LUNGS: Decreased air entry. Positive crackles. CARDIOVASCULAR SYSTEM: S1 and S2 are regular. ABDOMEN: Soft. ASSESSMENT: 1. Chronic artery pulmonary disease, interstitial lung disease. 2. Steroid-induced diabetes. PLAN: Medical management. Monitor the patient. The patient is not a candidate for home oxygen. The patient is for subacute rehab. Kwame Vasquez MD
[2018-09-15] MEDS: MethylPREDNISolone 40 mg Vial IV SCH ×2 (07:57→12:19)
[2018-09-15 08:30] VITALS: O2SAT 95
[2018-09-15] MEDS: (Novolin R) Insulin Human Regular 100 units/ml vial SC SCH ×2 (08:30→12:30)
[2018-09-15] MEDS: Enoxaparin 40 mg Syringe SC SCH (09:40)
[2018-09-15] MEDS: Azithromycin 500 MG in Sodium Chloride 0.9% 250 ML IVPB SCH (11:00)
--- NOTE | 2018-09-15 14:08 | CP.PCM.PN ---
Subjective - Date & Time of Evaluation Date of Evaluation: 09/15/18 Time of Evaluation: 14:08 - Subjective Subjective: PATIENT SEEN AND EXAMINED AT THE BEDSIDE Objective - Vital Signs/Intake and Output Vital Signs (last 24 hours): Temp Pulse Resp BP Pulse Ox 97.5 F L 97 H 20 118/76 95 09/15/18 08:00 09/15/18 08:00 09/15/18 08:00 09/15/18 08:00 09/15/18 08:00 - Medications Medications: Current Medications Albuterol/Ipratropium (Duoneb 3 Mg/0.5 Mg (3 Ml) Ud) 3 ml INH RQ4 [facility] Last Admin: 09/15/18 11:40 Dose: 3 ml Enoxaparin Sodium (Lovenox) 40 mg SC DAILY [facility] Last Admin: 09/15/18 09:40 Dose: 40 mg Famotidine (Pepcid) 20 mg IVP Q12 [facility] Last Admin: 09/15/18 09:40 Dose: 20 mg Azithromycin 500 mg/ Sodium (Chloride) 250 mls @ 250 mls/hr IVPB DAILY [facility]; Protocol Last Admin: 09/15/18 11:00 Dose: 250 mls/hr Ceftriaxone Sodium 1 gm/ (Sodium Chloride) 100 mls @ 100 mls/hr IVPB DAILY [facility]; Protocol Last Admin: 09/15/18 09:41 Dose: 100 mls/hr Insulin Human Regular (Novolin R) 0 unit SC ACHS [facility]; Protocol Last Admin: 09/15/18 12:30 Dose: 4 unit Latanoprost (Xalatan Opht) 0 ml OU HS [facility] Last Admin: 09/14/18 21:40 Dose: 2.5 ml Methylprednisolone (Solu-Medrol) 60 mg IV Q12 [facility] Promethazine HCl/Codeine (Phenergan/Codeine Oral Syrup) 5 ml PO Q6 PRN PRN Reason: Cough Last Admin: 09/13/18 18:56 Dose: 5 ml - Labs Labs: 09/13/18 07:09 09/13/18 07:09 PT 13.8 SECONDS (9.7-12.2) H 09/13/18 07:09 INR 1.3 09/13/18 07:09 Assessment and Plan - Assessment and Plan (Free Text) Assessment: PLACE UNDER THE SERVICE OF DR WEIR AT [facility]----CALL FOR ADMITTING ORDER CONTINUE HOME MEDICATION PER MED REC ACTIVITY TOLERATED AND FACILITY PROTOCOL MAKE ARRANGEMENT TO SEE DR POWER IN HIS OFFICE ------CALL FOR APPOINTMENT MAKE ARRANGEMENT TO SEE DR ANTONIO IN HIS OFFICE -----CALL FOR APPOINTMENT ADDRESS YOUR ENDOSCOPY YOUR VISIT ADDRESS YOUR FOLLOW UP ULTRA SOUND EVERY 6 MONTHS TO SCREEN FOR HEPATOCELLULAR CARCINOMA AT YOUR VISIT CALL DR WEIR FOR FURTHER ORDER
--- NOTE | 2018-09-15 14:28 | CP.PCM.PN ---
Subjective - Date & Time of Evaluation Date of Evaluation: 09/15/18 Time of Evaluation: 08:20 - Subjective Subjective: Patient was seen and examined at bedside this morning. He is resting comfortably in bed. No acute events noted overnight. Patient reports feeling better overall today and that his breathing feels much improved. Currently denies any chest pain, nausea, vomiting or hemoptysis. No other complaints noted at this time. Exam: Gen: No acute distress. AAOx3 HEENT: Moist mucosa. Card: RRRR. Lungs: Unlabored breathing, improved since yesterday. Symmetric chest excursions. (+) Diffuse rhonchi noted in all lung gardner Abd: Soft, non-distended. Normal bowel sounds. No tenderness to palpation. Ext: (+) 1+ pitting edema to the anterior shins bilaterally A&P: 1. Pulmonary Fibrosis - Chest CT (09/11): When compared to prior CT (08/2014), there is significant interval worsening of reticular opacities in the periphery of the upper lobes and bases of the bilateral lungs with honeycomb appearance. There is thoracic aorta ectasia and tortuiosity, mild cardiomegaly and mediastinal lympadenopathy; overall consistent with pulmonary fibrosis - KRISTI negative. Alpha 1 antitrypsin, ceruloplasmin, CA19-9 and AFP normal range. CEA slightly elevated. Auto-immune panel still pending - Patient is clinically much improved. At this time, he is stable from a pulmonary standpoint. Clear for discharge to sub-acute rehab as per primary te am's discretion. Will f/u with him as an outpatient. Objective - Vital Signs/Intake and Output Vital Signs (last 24 hours): Temp Pulse Resp BP Pulse Ox 97.5 F L 97 H 20 118/76 95 09/15/18 08:00 09/15/18 08:00 09/15/18 08:00 09/15/18 08:00 09/15/18 08:00 - Medications Medications: Current Medications Albuterol/Ipratropium (Duoneb 3 Mg/0.5 Mg (3 Ml) Ud) 3 ml INH RQ4 [facility] Last Admin: 09/15/18 11:40 Dose: 3 ml Enoxaparin Sodium (Lovenox) 40 mg SC DAILY [facility] Last Admin: 09/15/18 09:40 Dose: 40 mg Famotidine (Pepcid) 20 mg IVP Q12 [facility] Last Admin: 09/15/18 09:40 Dose: 20 mg Azithromycin 500 mg/ Sodium (Chloride) 250 mls @ 250 mls/hr IVPB DAILY [facility]; Protocol Last Admin: 09/15/18 11:00 Dose: 250 mls/hr Ceftriaxone Sodium 1 gm/ (Sodium Chloride) 100 mls @ 100 mls/hr IVPB DAILY [facility]; Protocol Last Admin: 09/15/18 09:41 Dose: 100 mls/hr Insulin Human Regular (Novolin R) 0 unit SC ACHS [facility]; Protocol Last Admin: 09/15/18 12:30 Dose: 4 unit Latanoprost (Xalatan Opht) 0 ml OU HS [facility] Last Admin: 09/14/18 21:40 Dose: 2.5 ml Methylprednisolone (Solu-Medrol) 60 mg IV Q12 [facility] Promethazine HCl/Codeine (Phenergan/Codeine Oral Syrup) 5 ml PO Q6 PRN PRN Reason: Cough Last Admin: 09/13/18 18:56 Dose: 5 ml - Labs Labs: 09/13/18 07:09 09/13/18 07:09 PT 13.8 SECONDS (9.7-12.2) H 09/13/18 07:09 INR 1.3 09/13/18 07:09
--- NOTE | 2018-09-15 14:44 | CP.PCM.PN ---
Subjective - Date & Time of Evaluation Date of Evaluation: 09/15/18 Time of Evaluation: 14:36 - Subjective Subjective: Patient is doing well. Tolerating diet. No vomiting. Had BM lastnight. I had a long conversation with daughter about management of cirrhosis. Objective - Vital Signs/Intake and Output Vital Signs (last 24 hours): Temp Pulse Resp BP Pulse Ox 97.5 F L 97 H 20 118/76 95 09/15/18 08:00 09/15/18 08:00 09/15/18 08:00 09/15/18 08:00 09/15/18 08:00 - Medications Medications: Current Medications Albuterol/Ipratropium (Duoneb 3 Mg/0.5 Mg (3 Ml) Ud) 3 ml INH RQ4 [facility] Last Admin: 09/15/18 11:40 Dose: 3 ml Enoxaparin Sodium (Lovenox) 40 mg SC DAILY [facility] Last Admin: 09/15/18 09:40 Dose: 40 mg Famotidine (Pepcid) 20 mg IVP Q12 [facility] Last Admin: 09/15/18 09:40 Dose: 20 mg Azithromycin 500 mg/ Sodium (Chloride) 250 mls @ 250 mls/hr IVPB DAILY [facility]; Protocol Last Admin: 09/15/18 11:00 Dose: 250 mls/hr Ceftriaxone Sodium 1 gm/ (Sodium Chloride) 100 mls @ 100 mls/hr IVPB DAILY [facility]; Protocol Last Admin: 09/15/18 09:41 Dose: 100 mls/hr Insulin Human Regular (Novolin R) 0 unit SC ACHS [facility]; Protocol Last Admin: 09/15/18 12:30 Dose: 4 unit Latanoprost (Xalatan Opht) 0 ml OU HS [facility] Last Admin: 09/14/18 21:40 Dose: 2.5 ml Methylprednisolone (Solu-Medrol) 60 mg IV Q12 [facility] Promethazine HCl/Codeine (Phenergan/Codeine Oral Syrup) 5 ml PO Q6 PRN PRN Reason: Cough Last Admin: 09/13/18 18:56 Dose: 5 ml - Labs Labs: 09/13/18 07:09 09/13/18 07:09 PT 13.8 SECONDS (9.7-12.2) H 09/13/18 07:09 INR 1.3 01/23/19 07:09 - Constitutional Appears: Well, Non-toxic - Head Exam Head Exam: ATRAUMATIC, NORMAL INSPECTION - Eye Exam Eye Exam: EOMI, Normal appearance - Respiratory Exam Respiratory Exam: Clear to Ausculation Bilateral, NORMAL BREATHING PATTERN - Cardiovascular Exam Cardiovascular Exam: REGULAR RHYTHM, +S1, +S2 - GI/Abdominal Exam GI & Abdominal Exam: Soft, Normal Bowel Sounds. absent: Tenderness - Extremities Exam Extremities Exam: Normal Inspection. absent: Pedal Edema - Neurological Exam Neurological Exam: Alert, Awake - Psychiatric Exam Psychiatric exam: Normal Affect, Normal Mood - Skin Skin Exam: Normal Color, Warm Assessment and Plan - Assessment and Plan (Free Text) Assessment: #Compensated Cirrhosis of unknown etiology #Suspected fibrosis #Thrombocytopenia PLAN: -Labs and imaging reviewed. No mass or acute findings of liver. 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 We will obtain a serum cirrhosis work-up including autoimmune, iron etc. Hep panel was negative and both patient and daughter firmly denies alcohol use. -So far work-up has been negative for cirrhosis. -MELD 12 -Wait on liver biopsy and it also may not be necessary due to poor risk-benefit ratio, especially with thrombocytopenia. This is not urgent and could be done as an outpatient. -Follow up recommendations of illuminator -Recommend outpatient EGD to screen for varices -Recommend U/S every 6 months to screen for HCC. -This has been discussed with the daughter extensively Case discussed with Dr. Nayak.
[2018-09-15 15:58] VITALS: BP 102/63; PULSE 95; TEMP 98.1
[2018-09-15] MEDS ORDERED: MethylPREDNISolone 40 mg Vial IV SCH (22:00)
--- NOTE | 2018-09-15 23:08 | CP.PCM.DIS ---
Provider - Provider Date of Admission: 09/11/18 17:38 Attending physician: Kwame Vasquez MD Consults: 09/11/18 20:19 Pulmonology Consult Routine Comment: Consulting Provider: Fransico Newell Consulting Physician: Fransico Newell Reason for Consult: sob 09/11/18 20:20 Cardiology Consult Routine Comment: Consulting Provider: Abraham Austin Consulting Physician: Abraham Austin Reason for Consult: sob, hypoxia 09/11/18 21:26 Gastroenterology Consult Routine Comment: Consulting Provider: Fern Nayak Consulting Physician: Fern Nayak Reason for Consult: cirrhosis 09/15/18 13:00 Urology Consult Routine Comment: difficulty urinating Consulting Provider: Stuart Power Consulting Physician: Stuart Power Reason for Consult: difficulty urinating Time Spent in preparation of Discharge (in minutes): 30 Hospital Course - Lab Results Lab Results: Most Recent Lab Values WBC 4.3 K/uL (4.8-10.8) L 09/13/18 07:09 RBC 4.27 Mil/uL (4.40-5.90) L 09/13/18 07:09 Hgb 13.5 g/dL (12.0-18.0) 09/13/18 07:09 Hct 41.6 % (35.0-51.0) 09/13/18 07:09 MCV 97.4 fL (80.0-94.0) H D 09/13/18 07:09 MCH 31.6 pg (27.0-31.0) H 09/13/18 07:09 MCHC 32.5 g/dL (33.0-37.0) L 09/13/18 07:09 RDW 15.0 % (11.5-14.5) H 09/13/18 07:09 Plt Count 52 K/uL (130-400) L 09/13/18 07:09 MPV 9.1 fL (7.2-11.7) 09/13/18 07:09 Neut % (Auto) 90.7 % (50.0-75.0) H 09/13/18 07:09 Lymph % (Auto) 6.2 % (20.0-40.0) L 09/13/18 07:09 [place] % (Auto) 3.0 % (0.0-10.0) 09/13/18 07:09 Eos % (Auto) 0.0 % (0.0-4.0) 09/13/18 07:09 Baso % (Auto) 0.1 % (0.0-2.0) 09/13/18 07:09 Neut # (Auto) 3.9 K/uL (1.8-7.0) 09/13/18 07:09 Lymph # (Auto) 0.3 K/uL (1.0-4.3) L 09/13/18 07:09 [place] # (Auto) 0.1 K/uL (0.0-0.8) 09/13/18 07:09 Eos # (Auto) 0.0 K/uL (0.0-0.7) 09/13/18 07:09 Baso # (Auto) 0.0 K/uL (0.0-0.2) 09/13/18 07:09 Neutrophils % (Manual) 88 % (50-75) H 09/13/18 07:09 Band Neutrophils % 6 % (0-2) H 09/13/18 07:09 Lymphocytes % (Manual) 5 % (20-40) L 09/13/18 07:09 Monocytes % (Manual) 1 % (0-10) 09/13/18 07:09 Differential Comment 09/11/18 16:58 Platelet Estimate Decreased (NORMAL) L 09/13/18 07:09 Anisocytosis (manual) Slight 09/13/18 07:09 ESR 43 mm/hr (0-15) H 09/13/18 07:11 PT 13.8 SECONDS (9.7-12.2) H 09/13/18 07:09 INR 1.3 09/13/18 07:09 Puncture Site Lr 09/14/18 13:00 pCO2 35 mm/Hg (35-45) 09/14/18 13:00 pO2 60 mm/Hg (80-100) L 09/14/18 13:00 HCO3 21.4 mmol/L (21-28) 09/14/18 13:00 ABG pH 7.37 (7.35-7.45) 09/14/18 13:00 ABG Total CO2 21.3 mmol/L (22-28) L 09/14/18 13:00 ABG O2 Saturation 94.5 % (95-98) L 09/14/18 13:00 ABG Base Excess -4.4 mmol/L (-2.0-3.0) L 09/14/18 13:00 ABG Hemoglobin 12.7 g/dL (11.7-17.4) 09/14/18 13:00 ABG Carboxyhemoglobin 1.8 % (0.5-1.5) H 09/14/18 13:00 POC ABG HHb (Measured) 5.3 % (0.0-5.0) H 09/14/18 13:00 ABG Methemoglobin 1.4 % (0.0-3.0) 09/14/18 13:00 Hemanth Test Pos 09/14/18 13:00 A-a O2 Difference 37.0 mm/Hg 09/11/18 20:45 Respiratory Index 0.5 09/11/18 20:45 Hgb O2 Saturation 91.5 % (95.0-98.0) L 09/14/18 13:00 FiO2 21.0 % 09/11/18 20:45 Sodium 134 mmol/L (132-148) 09/13/18 07:09 Potassium 3.8 mmol/L (3.6-5.2) 09/13/18 07:09 Chloride 104 mmol/L (98-107) 09/13/18 07:09 Carbon Dioxide 18 mmol/L (22-30) L 09/13/18 07:09 Anion Gap 16 (10-20) 09/13/18 07:09 BUN 13 mg/dL (9-20) 09/13/18 07:09 Creatinine 0.8 mg/dL (0.8-1.5) 09/13/18 07:09 Est GFR ( Amer) > 60 09/13/18 07:09 Est GFR (Non-Af Amer) > 60 09/13/18 07:09 POC Glucose (mg/dL) 257 mg/dL (65-110) H 09/15/18 11:34 Random Glucose 356 mg/dL (75-110) H D 09/13/18 07:09 Calcium 8.2 mg/dl (8.6-10.4) L 09/13/18 07:09 Iron 47 ug/dL (49-181) L 09/13/18 07:11 TIBC 216 ug/dL (250-450) L 09/13/18 07:11 % Saturation 22 (20-55) 09/13/18 07:11 Total Bilirubin 0.4 mg/dL (0.2-1.3) 09/13/18 07:09 AST 47 U/L (17-59) 09/13/18 07:09 ALT 29 U/L (21-72) 09/13/18 07:09 Alkaline Phosphatase 120 U/L (38-126) 09/13/18 07:09 Troponin I < 0.0120 ng/mL (0.00-0.120) 09/13/18 07:09 NT-Pro-B Natriuret Pep 407 pg/mL (0-900) 09/11/18 16:58 Total Protein 7.5 g/dL (6.3-8.3) 09/13/18 07:09 Albumin 3.2 g/dL (3.5-5.0) L 09/13/18 07:09 Globulin 4.3 gm/dL (2.2-3.9) H 09/13/18 07:09 Albumin/Globulin Ratio 0.7 (1.0-2.1) L 09/13/18 07:09 Skgdz-6-Hpzgijfxldn 130 mg/dL (83-199) 09/13/18 07:11 Ceruloplasmin 25 mg/dL (18-36) 09/13/18 07:11 Alpha Fetoprotein 3.7 ng/mL (0.0-7.5) 09/13/18 13:51 Carcinoembryonic Ag 4.7 ng/mL (0-3.0) H 09/13/18 13:51 CA 19-9 Antigen 9.4 U/mL (0-37) 09/13/18 13:51 KRISTI 6 Profile Negative (NEGATIVE) 09/13/18 07:11 Anti-Mitochondrial Ab Negative (Negative) 09/13/18 07:11 Smooth Muscle Ab Titer TEST NOT PERFORMED 09/13/18 07:11 Anti-Smooth Muscle Ab Negative (Negative) 09/13/18 07:11 Hepatitis A IgM Ab Negative (NEGATIVE) 09/12/18 07:22 Hep Bs Antigen Negative (NEGATIVE) 09/12/18 07:22 Hep Bs Antibody Negative (NEGATIVE) 09/12/18 07:22 Hep B Core IgM Ab Negative (NEGATIVE) 09/12/18 07:22 Hepatitis C Antibody Negative (NEGATIVE) 09/12/18 07:22 HIV 1&2 Antibody Screen Negative (NEGATIVE) 09/11/18 17:51 Influenza Typ A,B (EIA) Negative for flu a/b (NEGATIVE) 09/11/18 17:00 Discharge Exam - Head Exam Head Exam: ATRAUMATIC, NORMAL INSPECTION Discharge Plan - Discharge Medications Prescriptions: Amoxicillin/Clavulanate [Augmentin 875 MG-125 MG] 1 tab PO Q12H 3 Days tab Saccharomyces Boulardi [Florastor] 250 mg PO BID 3 Days cap Methylprednisolone [Medrol Dose Pack (21 tabs)] 4 mg PO DAILY #21 mg - Follow Up Plan Condition: GUARDED Disposition: [facility] Instructions: Shortness of Breath (Dyspnea) (DC), Cough, Adult (DC) Additional Instructions: PLACE UNDER THE SERVICE OF DR VASQUEZ AT [facility]----CALL FOR ADMITTING ORDER CONTINUE HOME MEDICATION PER MED REC ACTIVITY TOLERATED AND FACILITY PROTOCOL MAKE ARRANGEMENT TO SEE DR POWER IN HIS OFFICE ------CALL FOR APPOINTMENT MAKE ARRANGEMENT TO SEE DR NAYAK IN HIS OFFICE -----CALL FOR APPOINTMENT ADDRESS YOUR ENDOSCOPY YOUR VISIT ADDRESS YOUR FOLLOW UP ULTRA SOUND EVERY 6 MONTHS TO SCREEN FOR HEPATOCELLULAR CARCINOMA AT YOUR VISIT CALL DR VASQUEZ FOR FURTHER ORDER Referrals: Stuart Power MD [Staff Provider] - Fransico Newell MD [Staff Provider] - Abraham Austin MD [Staff Provider] - Fern Nayak [Staff Provider] - Kwame Vasquez MD [Staff Provider] -
--- NOTE | 2018-09-17 19:53 | DS ---
DISCHARGE DIAGNOSES: 1. Interstitial lung disease. 2. Steroid-induced diabetes. HOSPITAL COURSE: This is a 73-year-old [place] male with cough, congestion, shortness of breath and wheezing. He was admitted to the floor. He underwent chest x-ray and CT of the lung, found to have interstitial lung disease. The patient did have this condition before prior CAT scan. The patient was asymptomatic up until a month ago when he started having dyspnea. The patient was treated with steroid, Accu-Chek, sliding scale, diet, nebulizer. He is not a candidate for home oxygen and he needs to go to transitional care unit at [facility]. VITAL SIGNS: Blood pressure 118/76, pulse 97, respiratory rate 20, temperature 97.5. LABORATORY DATA: ABG showed pH of 7.37, pCO2 of 31, pO2 of 60, saturation 94.5. VITAL SIGNS: Blood pressure , pulse 95, respiratory rate 20, temperature 98.1. CONDITION UPON DISCHARGE: Stable. Kwame Vasquez MD
== END 2018-09-15 16:15 | DRG 198 ==
LOC: C.ER 15:58 → C.9E 17:38 → C.5S 18:44
PROVIDERS: ADMIT Internal Medicine; ATTEND Internal Medicine
DX: J84.10 Pulmonary fibrosis, unspecified (principal); R09.02 Hypoxemia; E09.9 Drug or chemical induced diabetes mellitus without complications; R07.89 Other chest pain; D69.6 Thrombocytopenia, unspecified; I77.810 Thoracic aortic ectasia; K74.60 Unspecified cirrhosis of liver; M06.9 Rheumatoid arthritis, unspecified; G89.29 Other chronic pain; G47.00 Insomnia, unspecified; Z87.11 Personal history of peptic ulcer disease; Z79.84 Long term (current) use of oral hypoglycemic drugs

== ENCOUNTER 2018-11-22 06:49 | Day surgery (SDC) | payer MEDICARE, MEDICAID ==
[2018-11-21 13:02] VITALS: BMI 27.9
[2018-11-22 10:53] LABS: HEMOGLOBIN 14.1 g/dL (12.0-18.0); MEAN CORPUSCULAR HGB CONC 33.1 g/dL (33.0-37.0); MEAN PLATELET VOLUME 8.9 fL (7.2-11.7); RBC 4.56 Mil/uL (4.40-5.90); RED CELL DISTRIBUTION WIDTH 14.5 % (11.5-14.5); WHITE BLOOD COUNT 5.1 K/uL (4.8-10.8)
[2018-11-22 11:00] LABS: MEAN CELL VOLUME 93.7 fL (80.0-94.0)
[2018-11-22 11:01] LABS: INR 1.4; PROTHROMBIN TIME 15.5 SECONDS (9.7-12.2)
[2018-11-22] MEDS ORDERED: Lidocaine Hydrochloride 5 ML INJ ONE (11:10)
[2018-11-22] MEDS ORDERED: Etomidate 20 mg/10ml Inj IV ONE (11:10)
[2018-11-22] MEDS ORDERED: Propofol 10 mg/ml Inj (20 ML) ONE (11:10)
[2018-11-22] MEDS ORDERED: ePHEDrine 50 mg/ml Inj ONE (11:39)
[2018-11-22 12:07] VITALS: TEMP 98.5
[2018-11-22 12:37] VITALS: RESP 17
[2018-11-22 13:42] VITALS: BP 112/68; PULSE 88; O2SAT 97
== END 2018-11-22 13:18 | disposition home or self-care (01) ==
LOC: C.ENDO 06:49
PROVIDERS: ATTEND Internal Medicine Gastroenterology
DX: K64.0 First degree hemorrhoids (principal); K62.5 Hemorrhage of anus and rectum; K55.20 Angiodysplasia of colon without hemorrhage
CPT/HCPCS: 36415; 45378; 85027; 85610; 85730; J2704